=== PATIENT | male | born 1965 | race Caucasian/White ===

== ENCOUNTER 2016-07-01 20:55 | Emergency (ER) | payer MEDICARE ==
[2015-07-01 13:03] VITALS: BMI 24.6
[~2016-07-01 20:55] MED LIST: ASPIRIN 81 MG E81 MG PO; ASPIRIN325 MG PO; BAYER CHEWABLE81 MG PO; EFFIENT10 MG PO; HEMOCYTE PLUS1 CAP PO; IMDUR30 MG PO; LASIX40 MG PO; LISINOPRIL2.5 MG PO; LOPRESSOR25 MG PO; NORCO 10/325 TA1 TA1 PO; PLAVIX75 MG PO; PRAVACHOL40 MG PO; PROTONIX40 MG PO; SYNTHROID75 MCG PO; TYLENOL 8 HOUR650 MG PO; TYLENOL325 MG PO
== END 2016-07-01 21:00 | disposition left against medical advice (07) ==
LOC: D.ER 20:55
DX: Z02.9 Encounter for administrative examinations, unspecified (principal)

== ENCOUNTER 2016-10-31 00:40 | Outpatient (CLI) | payer MEDICARE ==
[~2016-10-31] VITALS: Ht 166.4 cm; Wt 66.0 kg
--- NOTE | ~2016-10-31 | HEMODYNAMI ---
PATIENT:NUHA HUMPHREYS MEDICAL RECORD: [id number] : 65 [facility] [facility] [id number] ADMISSION DATE: 10/31/16 Generatedon:11/01/201614:13 Patient name: NUHA HUMPHREYS Patient #: [id number] SSN: : 1965 Date of study: 11/01/2016 Page: Of Hemodynamic Procedure Report Patient Data Patient Demographics Procedure consent was obtained First Name: NUHA Gender: Male Last Name: PETR : 1965 [facility] Initial: SEDA Age: 51 year(s) Patient #: [id number] Race: Additional ID: [id number] Contact details [address]: [address] [place] [address] ROAD State: [place] City: [place] Zip code: [address] Past Medical History History of disease Date Diagnosis Comments CAD Allergies: No known allergies Admission Admission Data Admission Date: 10/31/2016 Admission Time: 1:01 Room #: D2123 Lab Results Lab Result Date: 11/01/2016 Lab Result Time: 0:00 Biochemistry Name Units Result Min Max BUN mg/dl 11 --(-*--)-- 7 18 Creatinine mg/dl 0.9 --(-*--)-- 0.6 1.3 CBC Name Units Result Min Max Hemoglobin g/dl 14 --(*---)-- 13.5 17.5 Procedure Procedure Types Cath Procedure Diagnostic Procedure C [facility] w/Coronaries w/Grafts PCI Procedure Coronary Stent Initial Miscellaneous Procedures Moderate Sedation up to 15 minutes Procedure Description Procedure Date Procedure Date: 11/01/2016 Procedure Start Time: 13:41 Procedure End Time: 14:13 Procedure Staff Name Function Yayo Rousseau MD Performing Physician Adolfo Plummer RT Scrub Aislinn Salazar RN Nurse Marybeth Tang RT Monitor Procedure Data Cath Procedure Fluoroscopy Diagnostic fluoroscopy Total fluoroscopy Time: 6.3 time: 6.3 min min Diagnostic fluoroscopy Total fluoroscopy dose: 822 dose: 822 mGy mGy Contrast Material Contrast Material Type Amount (ml) Isovue 300 151 Entry Location Entry Primary Successful Side Size Upsize Upsize Entry Closure Succes sful Closure Location (Fr) 1 (Fr) 2 (Fr) Remarks Device Remarks Femoral Right 5 Fr 6 Fr Exoseal artery Short Estimated blood loss: 10 ml Diagnostic catheters Device Type Used For End Catheter Placement Cordis 5Fr JL 4.0 Procedure Catheter (MP) Diagnostic Infinity 5Fr Procedure AR MOD Catheter Diagnostic Infinity 5Fr Procedure IM catheter Cordis 5Fr Pigtail Ventriculography Catheter (MP) Diagnostic Infinity 5Fr Procedure IM catheter Procedure Complications No complications Procedure Medications Medication Administration Route Dosage Oxygen NC 2 l/min Lidocaine 2% added to field 20 Heparin Flush Bag added to field 2 bags (1000units/500ml NS) 0.9% NaCl I.V. 100 ml/hr Versed I.V. 1 mg Fentanyl I.V. 50 mcg Versed I.V. 1 mg Fentanyl I.V. 50 mcg Fentanyl I.V. 50 mcg Heparin Bolus I.V. 6500 units Nitroglycerin IC/IA I.C. 50 mcg Brilinta P.O. 180 mg Hemodynamics Rest HGB: 14 (g/dl) Heart Rate: 58 (bpm) Pressure Samples Time Site Value (mmHg) Purpose Heart Use Rate(bpm) 13:51 LV 107/6,16 Snapshot 65 13:51 LV 106/7,16 Snapshot 65 Gradients Valve Time Site Site Mean SEP/DFP Peak To Heart Use 1 2 (mmHg) (sec/min) Peak Rate (mmHg) (bpm) Aortic 13:52 LV AO 60 Snapshots Pre Cath Intra NCS Post Cath Vital Signs Time Heart Resp SPO2 etCO2 [id number] NIBP Rhythm Pain Sedation Rate (ipm) (%) (mmHg) (mmHg) (mmHg) Status Level (bpm) 13:23:17 61 17 97 0 0 No Cuff NSR 0 (11) 10(A) , No pain 13:27:23 66 16 95 0 0 108/59(71) NSR 0 (11) 10(A) , No pain 13:31:33 60 16 95 0 0 94/55(72) NSR 0 (11) 10(A) , No pain 13:35:37 60 15 100 0 0 105/58(86) NSR 0 (11) 10(A) , No pain 13:39:44 61 16 100 0 0 95/57(72) NSR 0 (11) 9(A) , No pain 13:43:50 65 14 100 0 0 99/53(87) NSR 0 (11) 9(A) , No pain 13:47:52 65 13 99 0 0 113/64(84) NSR 0 (11) 9(A) , No pain 13:52:04 61 15 99 0 0 100/56(78) NSR 0 (11) 9(A) , No pain 13:56:10 63 16 99 0 0 99/57(95) NSR 0 (11) 9(A) , No pain 14:00:16 64 17 99 0 0 101/54(79) NSR 0 (11) 9(A) , No pain 14:04:21 66 16 99 0 0 94/57(69) NSR 0 (11) 9(A) , No pain 14:08:25 64 16 99 0 0 100/57(76) NSR 0 (11) 9(A) , No pain 14:12:31 65 15 98 0 0 104/55(84) NSR 0 (11) 10(A) , No pain Medications Time Medication Route Dose Verified Delivered Reason Notes Effectiveness by by 13:26:47 Oxygen NC 2 Yayo Buffie used for l/min Jj Salazar RN procedure 13:26:54 Lidocaine 2% added 20ml Yayo Yayo for local to vial Jj Rousseau MD anesthetic field 13:27:01 Heparin Flush added 2 Yayo Yayo used for Bag to bags Jj Rousseau MD procedure (1000units/500ml field NS) 13:27:10 0.9% NaCl I.V. 100 Yayo Buffie Per physician ml/hr Jj Salazar RN 13:31:11 Versed I.V. 1 mg Yayo Buffie for sedation Jj Salazar RN 13:31:16 Fentanyl I.V. 50 Yayo Buffie for sedation mcg Jj Salazar RN 13:36:52 Versed I.V. 1 mg Yayo Buffie for sedation Jj Salazar RN 13:36:56 Fentanyl I.V. 50 Yayo Buffie for sedation mcg Jj Salazar RN 13:55:37 Fentanyl I.V. 50 Yayo Buffie for sedation mcg Rousseau MD Salazar RN 13:58:37 Heparin Bolus I.V. 6500 Yayo Tao for verifi ed units Jj Salazar RN anticoagulation with dr rousseau 13:58:49 Nitroglycerin I.C. 50 Yayo Yayo for IC/IA mcg Jj Rousseau MD vasodilation 14:12:56 Brilinta P.O. 180 Yayo Tao for mg Jj Salazar RN antiplatelet therapy Procedure Log Time Note 13:02:23 Informed consent obtained and on chart 13:02:28 Diagnostic Cath Status : Elective 13:03:17 Adolfo Plummer RT(R) (CV) sent for patient. Start room use. 13:03:19 Time tracking: Regular hours 13:03:24 Plan of Care:Hemodynamics will remain stable., Cardiac rhythm will remain stable., Comfort level will be maintained., Respiratory function will remain adequate., Patient/ family verbilizes understanding of procedure., Procedure tolerated without complication., Recovers from procedure without complications.. 13:10:27 Patient received from Med II to CCL 1 Alert and oriented. Tansferred to table in Supine position. 13:11:14 H&P Date Dictated: 10/31/2016 Within 30 days and on chart.. 13:11:21 Pre-procedure instructions explained to patient. 13:12:00 Family in waiting room. 13:12:04 Patient NPO since Midnight. 13:12:20 Patient allergic to No known allergies 13:12:24 Is the patient allergic to Iodine/contrast media? No. 13:12:34 Is patient on blood thinner?Yes 13:12:38 ACC The patient was administered the following blood thiners within the last 24 hours: ACCAspirin 13:15:17 Procedure type changed to Cath procedure, Diagnostic procedure, LHC, LHC w/Coronaries w/Grafts, PCI procedure, Coronary Stent Initial, Miscellaneous Procedures, Moderate Sedation up to 15 minutes 13:22:24 Warm blankets applied, and lauren hugger turned on for patient comfort. 13:22:25 Correct patient and procedure confirmed by team. 13:22:26 ECG and BP/O2 sat monitors applied to patient. 13:22:28 Vital chart was started 13:22:30 Baseline sample Acquired. 13:22:36 Rhythm: sinus rhythm 13:22:39 Full Disclosure recording started 13:22:49 Patient diabetic? No. 13:22:53 Snore? No 13:22:55 Sleep apnea? No 13:23:25 IV patent on arrival in right antecubital with 0.9% NaCl at [facility]. 13:23:36 Lab results completed and on chart. 13:23:41 Right groin area was prepped with chlora-prep and draped in sterile fashion 13::42 Alarms reviewed by R. N. 13::43 Sharps counted by scrub and verified by R.N. 13:23:44 Physician paged 13:25:11 Lab Result : BUN 11 mg/dl 13:25:11 Lab Result : Creatinine 0.9 mg/dl 13:25:11 Lab Result : Hemoglobin 14 g/dl 13::47 Oxygen 2 l/min NC was administered by Aislinn Salazar RN; used for procedure; 13::54 Lidocaine 2% 20ml vial added to field was administered by Yayo Rousseau MD; for local anesthetic; 13:27:01 Heparin Flush Bag (1000units/500ml NS) 2 bags added to field was administered by Yayo Rousseau MD; used for procedure; 13:27:10 0.9% NaCl 100 ml/hr I.V. was administered by Aislinn Salazar RN; Per physician; 13:29:07 Physician arrived 13:29:09 --------ALL STOP TIME OUT------ 13:29:09 Final Timeout: patient, procedure, and site verified with staff and physician. All members of the team are in agreement. 13:29:12 Right groin site verified by team. 13:29:16 Physical assessment completed. ASA score P 2 - A patient with mild systemic disease as per Yayo Rousseau MD. 13:29:20 Sedation plan: IV Moderate Sedation Versed, Fentanyl 13:31:11 Versed 1 mg I.V. was administered by Aislinn Salazar RN; for sedation; 13::16 Fentanyl 50 mcg I.V. was administered by Aislinn Salazar RN; for sedation; 13:32:27 Use device set Femoral Dx 13:32:29 Acist Syringe opened to sterile field. 13:32:29 Bag Decanter opened to sterile field. 13:32:29 Medline Cath Pack opened to sterile field. 13:32:30 Terumo 5Fr [place] Sheath opened to sterile field. 13:32:30 St Isael 260cm J .035 wire opened to sterile field. 13:32:32 Acist Hand Control opened to sterile field. 13:32:33 Acist Manifold opened to sterile field. 13:32:33 Diagnostic Infinity 5Fr Multipack catheter opened to sterile field. 13:32:33 Tegaderm 4 x 4 opened to sterile field. 13:36:52 Versed 1 mg I.V. was administered by Aislinn Salazar RN; for sedation; 13:36:56 Fentanyl 50 mcg I.V. was administered by Aislinn Salazar RN; for sedation; 13:37:38 Zero performed for pressure channel P1 13:41:40 Procedure started. 13:41:44 Local anesthetic to right femoral artery with Lidocaine 2% by Yayo Rousseau MD.INITIAL ACCESS ONLY 13:42:51 Zero performed for pressure channel P1 13:43:12 A 5 Fr sheath was inserted into the Right Femoral artery 13:43:27 A Cordis 5Fr JL 4.0 Catheter (MP) was advanced over the wire and used for Procedure. 13:43:37 LCA angiography performed. 13:44:37 Catheter removed. 13:45:37 A Diagnostic Infinity 5Fr AR MOD Catheter was advanced over the wire and used for Procedure. 13:46:23 SVG to RCA occluded. 13:46:29 RCA angiography performed. 13:47:07 SVG to RPDA angiography performed. 13:47:11 SVG to OM angiography performed. 13:47:15 Catheter removed. 13:47:41 A Diagnostic Infinity 5Fr IM catheter was advanced over the wire and used for Procedure. 13:48:43 LI to LAD angiography performed. 13:49:54 Catheter removed. 13:50:51 A Cordis 5Fr Pigtail Catheter (MP) was advanced over the wire and used for Ventriculography. 13:51:41 EF : 35 % 13:52:34 Catheter removed. 13:52:55 Proceeding to intervention. 13:54:05 A Diagnostic Infinity 5Fr IM catheter was advanced over the wire and used for Procedure.IM used to wire the LI. 13:55:08 Proceeding to intervention. 13:55:21 Sheath upsized to a 6 Fr Short. 13:55:37 Fentanyl 50 mcg I.V. was administered by Aislinn Salazar RN; for sedation; 13:56:01 Terumo 6Fr [place] Sheath opened to sterile field. 13:56:06 Merit BasixCompak Inflation Kit opened to sterile field. 13:56:08 Coarsegold LocaModa Choice Floppy Straight 300cm 0.014 guid opened to sterile field. 13:56:09 High Pressure Extension Tubing (Jj) opened to sterile field. 13:56:11 Merit BasixCompak Inflation Kit opened to sterile field. 13:56:12 Medtronic Launcher 6Fr AJAY guide catheter opened to sterile field. 13:56:56 6 Fr AJAY guide catheter was inserted over the wire 13:58:37 Heparin Bolus 6500 units I.V. was administered by Aislinn Salazar RN; for anticoagulation; verified with dr rousseau 13:58:49 Nitroglycerin IC/IA 50 mcg I.C. was administered by Yayo Rousseau MD; for vasodilation; 14:01:32 choice floppy wire advanced. 14:04:24 Wire advanced across lesion. 14:05:47 Inflation Number: 1 A Brannon OTW 2.25 x 22 stent was prepped and advanced across the Dist LAD. The stent was deployed at 14 JODI for 0:19 (min:sec). 14:06:59 Wire removed. 14:07:08 Stent catheter was removed intact over wire. 14:07:09 Guide catheter removed. 14:07:23 Cordis 6Fr Exoseal opened to sterile field. 14:07:40 Sheath removed intact; hemostasis achieved with Exoseal to the Right Femoral artery. 14:07:43 Procedure ended.(Physican Out) 14:08:34 Fluoroscopy time 06.30 minutes. 14:08:40 Flurop Dose total: 822 14:08:40 Fluoroscopy dose: 822 mGy 14:08:46 Contrast amount:Isovue 300 151ml. 14:08:48 Sharps counted by scrub and verified by R.N. 14:08:56 Insertion/operative site no bleeding no hematoma. 14:09:25 Post right femoral artery:stable 14:10:51 Post Procedure Pulses reassessed and unchanged 14:10:58 Post-procedure physical assessment completed. ASA score P 2 - A patient with mild systemic disease as per Yayo Rousseau MD. 14:11:04 Post procedure rhythm: unchanged. 14:11:08 Estimated blood loss: 10 ml 14:11:10 Post procedure instruction explained to patient.Patient verbalizes understanding. 14:11:20 Procedure and supply charges have been captured, reviewed, submitted and are correct. 14:12:51 Procedure Complication : No complications 14:12:54 Vital chart was stopped 14:12:56 Brilinta 180 mg P.O. was administered by Aislinn aSlazar RN; for antiplatelet therapy; 14:12:56 See physician's report for complete and final results. 14:13:[address] [facility]. 14:13:[address] Patient transfered to [facility] with Bed. 14:13:13 Procedure ended. 14:13:13 Full Disclosure recording stopped 14:13:17 End room use (Document Last) 14:13:29 ACC-PCI Only Patient was given prescriptions, or instructed by Yayo Rousseau MD to start/continue the following medications upon discharge: Plavix Intervention Summary Intervention Notes Time ActionType Lesion and Equipment Action# Pressure Duration Attributes Used 14:05:47 Place stent Dist LAD Brannon OTW 1 14 00:19 2.25 x 22 stent Device Usage Item Name Manufacture Quantity Catalog Hospital Part Current Minima l Lot# / Number Charge Number Stock Stock Serial# Code Acist Acist 1 05518 404571 941938 151147 20 Syringe Medical Systems Inc Bag Microtek 1 2002S 105759 73623 503884 5 Decanter Medical Inc. Medline Cardinal 1 [id number] 825382 12721 016397 5 Cath Pack Movimento Group Terumo 5Fr Terumo 1 AMM680 502313 350370 655370 [address] Isael 1 880888 412713 823718 173851 30 260cm J .035 wire Acist Hand Acist 1 56057 386974 033346 790410 5 Control Medical Systems Inc Acist Acist 1 56951 513939 642012 748082 5 Manifold Medical Systems Inc Diagnostic Cardinal 1 EY2868 053541 88557 658473 30 SmartCrowds 5Fr Multipack catheter Tegaderm 4 3M 1 1626W 752123 465579 443188 5 x 4 Cordis 5Fr Cardinal 1 529694 5 JL 4.0 Health Catheter (MP) Diagnostic Cardinal 1 [id number] 161400 084882 053244 15 SmartCrowds 5Fr AR MOD Catheter Diagnostic Cardinal 1 [id number] 416996 713787 075878 5 Infinity Health 5Fr IM catheter Cordis 5Fr Cardinal 1 049228 5 Pigtail Health Catheter (MP) Terumo 6Fr Terumo 1 HSE239 668266 127363 190612 40 [place] Sheath Merit Merit 2 AN3797 424863 957353 100112 15 BasixCompak Medical Inflation Kit Coarsegold Sci Coarsegold 1 [id number] 147436 779779 687311 5 Choice Scientific Floppy Straight 300cm 0.014 guid High Merit 1 [id number] 848895 71657 294585 10 Pressure Medical Extension Tubing (Rousseau) Medtronic Medtronic 1 LA6IMA 622327 39642 538358 1 Launcher 6Fr AJAY guide catheter Brannon OTW Medtronic 1 [id number] 626439 5 [id number] 2.25 x 22 stent Cordis 6Fr Cardinal 1 EX600 426806 500002 132345 10 [facility] Movimento Group Signature Audit [place] Stage Time Signature Unsigned Intra-Procedure 11/01/2016 Marybeth Tang 2:13:44 PM RT(R) Signatures Monitor : Marybeth Tang Signature : RT Date : Time : [place] [id number] [facility] [address]
[2016-10-31 00:06] LABS: BASOPHILS 0.3 % (0-2); EOSINOPHILS 10.4 % (0-7); HEMATOCRIT 41.7 % (42.0-54.0); HEMOGLOBIN 14.7 g/dL (13.5-17.5); IMMATURE GRANULOCYTES 0.3 % (0-5); LYMPHOCYTES 58.1 % (15-50); MCH 31.3 pg (26.0-34.0); MCHC 35.3 g/dL (31.0-37.0); MCV 88.9 fL (80.0-100.0); MEAN PLATELET VOLUME 9.8 fL (7.4-10.4); NEUTROPHILS 24.9 % (40-80); PLATELET COUNT 229 10x3/uL (130-400); RBC 4.69 10x6/uL (4.20-6.10); RDW 13.6 % (11.5-14.5)
[2016-10-31 00:27] LABS: ALBUMIN 3.8 g/dL (3.4-5.0); ALKALINE PHOSPHATASE 90 U/L (46-116); ALT (SGPT) 28 U/L (10-68); CALC OSMOLALITY 274 mosm/kg (275-300); CALCIUM 8.8 mg/dL (8.5-10.1); CARBON DIOXIDE 19.5 mmol/L (21.0-32.0); CHLORIDE - SERUM 103 mmol/L (98-107); POTASSIUM - SERUM 3.2 mmol/L (3.5-5.1); PROTEIN - SERUM 7.2 g/dL (6.4-8.2); SODIUM 136 mmol/L (136-145); UREA NITROGEN 14 mg/dL (7-18); eGFR NON AFRICAN AMERICAN 84 mL/min (90-120)
[2016-10-31 00:29] LABS: GLUCOSE 126 mg/dL (74-106)
[2016-10-31 00:38] LABS: CHOL - HDL RATIO 3.9 ratio (2.3-4.9); CHOLESTEROL, TOTAL 177 mg/dL (0-200); CKMB 2.8 U/L (0.0-3.6); CREATINE KINASE 175 UL (21-232); HDL CHOLESTEROL 45 mg/dL (32-96); LDL CHOLESTEROL 88 mg/dL (0-100); TRIGLYCERIDE 220 mg/dL (30-200); TROPONIN-I < 0.017 ng/mL (0.000-0.060)
--- NOTE | 2016-10-31 01:33 | NUR ---
PT ARRIVED VIA W/C FROM ER WITH DX [place]. PT NAD. ALERTA ND ORIENTEDT O PERSON, PLACE AND TIME. IV TO LFA SL. O2 2LNC. WILL CONTINUE TO MONITOR. CALL LIGHT WITHIN REACH.
[2016-10-31 01:46] VITALS: BP 101/71; Ht 166.4 cm; Wt 66.0 kg
--- NOTE | 2016-10-31 02:01 | NUR ---
ADMISSION ASSESSMENT, HISTORY AND HOME MEDS LIST COMPLETED. SR PER CM HR 70. O2 2LNC. VSS. PT DENIES ANY DISCOMFORT AT THIS TIME. EXPLAINED TO PT NPO UNTIL SEEN BY CARDIOLOGY. WILL CONTINUE TO MONITOR. SR UP X2, CALL LIGHT WITHIN REACH.
--- NOTE | 2016-10-31 03:12 | NUR ---
PT RESTING WITH EYES CLOSED. RESP EVEN AND REGULAR. SR UP X2, CALL LIGHT WITHIN REACH.
--- NOTE | 2016-10-31 06:47 | NUR ---
VSS THOUGHTOUT NIGHT. PT DENIED ANY DISCOMFORT. NEEDS MET; WILL CONTINUE TO MONITOR.
[2016-10-31 07:22] LABS: CREATINE KINASE 141 UL (21-232); TROPONIN-I < 0.017 ng/mL (0.000-0.060)
[2016-10-31 07:46] LABS: BASOPHILS 0.4 % (0-2); EOSINOPHILS 8.2 % (0-7); HEMATOCRIT 40.2 % (42.0-54.0); IMMATURE GRANULOCYTES 0.2 % (0-5); LYMPHOCYTES 60.4 % (15-50); MCH 31.2 pg (26.0-34.0); MCHC 34.8 g/dL (31.0-37.0); MCV 89.5 fL (80.0-100.0); MEAN PLATELET VOLUME 10.2 fL (7.4-10.4); MONOCYTES 7.3 % (2-11); NEUTROPHILS 23.5 % (40-80); PLATELET COUNT 219 10x3/uL (130-400); RBC 4.49 10x6/uL (4.20-6.10); RDW 13.7 % (11.5-14.5); WBC 5.1 10x3/uL (4.8-10.8)
[2016-10-31 07:56] LABS: CALCIUM 8.6 mg/dL (8.5-10.1); CARBON DIOXIDE 21.1 mmol/L (21.0-32.0); CHLORIDE - SERUM 105 mmol/L (98-107); CREATININE - SERUM 0.9 mg/dL (0.6-1.3); SODIUM 138 mmol/L (136-145); UREA NITROGEN 11 mg/dL (7-18); eGFR NON AFRICAN AMERICAN > 90 mL/min (90-120)
[2016-10-31 08:00] VITALS: BP 114/64
[2016-10-31 08:03] LABS: CALC OSMOLALITY 273 mosm/kg (275-300); GLUCOSE 74 mg/dL (74-106); POTASSIUM - SERUM 4.1 mmol/L (3.5-5.1)
--- NOTE | 2016-10-31 08:34 | NUR ---
ASSESSMENT DONE. DENIES NEEDS.
--- NOTE | 2016-10-31 10:53 | NUR ---
RESTS WITH EYES CLOSED. RESP UL 0N . CALL LIGHT IN REACH. WILL CONT. PLAN OF CARE.
[2016-10-31 12:00] VITALS: BP 107/65
[2016-10-31 12:56] LABS: CREATINE KINASE 135 UL (21-232); TROPONIN-I < 0.017 ng/mL (0.000-0.060)
[2016-10-31 16:00] VITALS: BP 121/64
--- NOTE | 2016-10-31 17:20 | NUR ---
WITHOUT CHAMGES OR DISTRESS NOTED AT THIS TIME. DENIES NEEDS.
[2016-10-31 20:36] VITALS: BP 113/74
--- NOTE | 2016-10-31 23:41 | NUR ---
INITIAL ROUNDS COMPETED AT 1915 RHS. PT DENIED ANY DISCOMFORT. ASSESSMENT COMPLETED AT 2015 HRS. VSS. SR PER CM HR 62. O2 2LNC. IV TO LFA SL. LUNGS DIMINISHED IN BASES BILAT. SHOWER DONE AND BED LINENS CHANGED AT 2200 HRS. PT CURRENTLY WATCHING TV. WILL CONTINUE TO MONITOR. SR UP X2,C ALL LIGHT WITHIN REACH.
[2016-10-31 23:59] VITALS: BP 124/72
--- NOTE | 2016-11-01 02:09 | NUR ---
PT RESTING WITH EYES CLOSED. RESP EVEN AND REGULAR. SR UP X2, CALL LIGHT WITHIN REACH.
[2016-11-01 04:00] VITALS: BP 102/55
--- NOTE | 2016-11-01 04:35 | NUR ---
PT RESTING WITH EYES CLOSED. RESP EVEN AND REGULAR. SR UP X2, CALL LIGHT WITHIN REACH.
[2016-11-01 08:57] VITALS: BP 112/65
--- NOTE | 2016-11-01 11:06 | NUR ---
ASSESSMENT COMPLETED. UP AB AAMIR. TELEMERTY SHOWS SB 52. DENIES ANY NEEDS.
--- NOTE | 2016-11-01 11:30 | NUR ---
AMBULATING IN CASTRO. NO DISTRESS.
[2016-11-01 11:58] VITALS: BP 114/66
--- NOTE | 2016-11-01 13:00 | NUR ---
TO REGISTRATION OFFICER PER BED
[2016-11-01] MEDS ORDERED: BRILINTA90 MG PO (14:37)
[2016-11-01] MEDS ORDERED: ASPIRIN81 MG PO (14:38)
--- NOTE | 2016-11-01 14:45 | NUR ---
BACK FROM BROACH GRINDER. V/S STABLE. RIGHT GROIN SOFT WITH DRSG DRY AND INTACT. PPP. CALL LIGHT IN REACH WITH SR UP. WILLMONITOR. SR UP WITH CALL LIGHT IN REACH
--- NOTE | 2016-11-01 19:00 | NUR ---
PT DISCHARGED .IV DCD. TO HOME PERPRIVATE CAR
--- NOTE | 2016-11-03 13:54 | OP ---
PATIENT NAME: NUHA HUPMHREYS MEDICAL RECORD: [id number] :65 LOCATION:D.CAT ADMISSION DATE: SURGEON: KODAK CORLEY M.D. DATE OF OPERATION: 11/01/2016 PROCEDURES PERFORMED: 1. Selective coronary angiography. 2. Left heart catheterization with ventriculogram. 3. Bypass angiography. 4. Left internal mammary injection. 5. PTCA and stent placement to the LI to LAD. INDICATION: A 51-year-old gentleman status post bypass grafting, presents with recurrent chest discomfort. EQUIPMENT USED: Diagnostic 5-Yemeni JL4, Clark right, pigtail catheter, and mammary catheter. INTERVENTION: A 6-Yemeni LI guide, choice floppy guidewire, 2.25 x 22 mm Brannon stent. TECHNIQUE: A 5-Yemeni sheath was inserted in retrograde fashion in the right common femoral artery. Next, selective coronary angiography was performed in standard 5-Yemeni JL4 and Clark right. Left heart catheterization performed using pigtail catheter. The internal mammary was selected with internal mammary catheter. Bypass angiography was performed using an AR modified catheter. CORONARY ANATOMY: 1. Left main: Left main trunk is moderate in caliber. It gives rise to the LAD and circumflex. There is no obstruction. 2. LAD: This vessel is 100% occluded in mid segment. There is competitive flow seen to the mid segment. 3. Circumflex: This vessel is moderate in caliber. It is 100% occluded in the proximal segment. 4. Right coronary: This vessel is nondominant. It has a 70% stenosis mid segment which is unchanged from previous study. 5. Saphenous vein graft to the circumflex: This is actually a sequential graft touching down on the first, second and third marginal branches as well as the PDA. All 4 limbs are widely patent. 6. Left internal mammary artery to LAD: This graft is widely patent throughout its course. Beyond the anastomosis, there is an eccentric 80% stenosis in the mid LAD. 7. Left ventricle: Left ventricle is normal in size. There is global hypokinesis noted. Estimated ejection fraction is in the order of 35%. DESCRIPTION OF INTERVENTION: A 6-Yemeni sheath was inserted in retrograde fashion in the right common femoral artery. Next, a 1 unit of per kilogram of heparin was infused. A 6-Yemeni internal mammary guide was advanced and engaged in the internal mammary artery. Next, a choice floppy guidewire was placed in the distal LAD. A 2.25 x 22 mm Brannon stent was placed across the stenosis. The stent was deployed at 14 atmospheres. Injection shows stent to be widely patent with 0% residual stenosis. There is marked improvement in distal flow. At this point, the mammary guide was disengaged. IMPRESSION: Successful percutaneous transluminal coronary angioplasty and OPERATIVE REPORT [id number] NUHA HUMPHREYS stenting to the LAD through the LI with 0% residual stenosis. TRANSINT:[id number] Voice Confirmation ID: [id number] DOCUMENT ID: [id number] KODAK CORLEY M.D. at 1354 CC: [id number] DICTATION DATE: 11/01/16 1426 CREASING AND CUTTING PRESS FEEDER: 11/01/16 1750 DEP CLI 11/01/16 [id number] [place] [address]
== END 2016-11-01 19:00 | disposition home or self-care (01) ==
LOC: OBSVTIME → D.CATH 00:40 → D.M2 01:01 → OBSVTIME 01:01 → D.ER 01:01 → D.M2 01:01 → EDSTATUS 11-01 14:00 → D.M2 11-01 19:00 → D.CATH 11-01 19:00
PROVIDERS: Emergency Medicine; Internal Medicine Cardiovascular Disease
DX: I25.119 Atherosclerotic heart disease of native coronary artery with unspecified angina pectoris (principal); I25.719 Atherosclerosis of autologous vein coronary artery bypass graft(s) with unspecified angina pectoris; Z01.812 Encounter for preprocedural laboratory examination
CPT/HCPCS: 93459; C9604

== ENCOUNTER 2016-11-04 23:35 | Inpatient (IN) | payer MEDICARE ==
[~2016-11-04] VITALS: Ht 166.4 cm; Wt 65.5 kg
--- NOTE | ~2016-11-04 | HP ---
PATIENT: NUHA HUMPHREYS MEDICAL RECORD: [id number] ACCOUNT: [id number] LOCATION:D. D.2114 : 65 ADMISSION DATE: 11/05/16 HISTORY AND PHYSICAL EXAMINATION PROBLEM LIST: 1. Acute anterior myocardial infarction aborted with thrombolytics. 2. Coronary artery disease. 3. Status post coronary artery bypass graft surgery. 4. Status post recent percutaneous transluminal coronary angioplasty stent left anterior descending artery. HISTORY OF PRESENT ILLNESS: This is a gentleman who was seen by Dr. Gardner one week ago with angina and had significant disease of the left anterior descending artery after the left internal mammary artery graft. He underwent successful percutaneous transluminal coronary angioplasty stent of this with a drug-eluting stent. He was discharged home. He did not get his Brilinta and then was not taking an aspirin. He came back with an acute chest pain syndrome, ST elevation. He received thrombolytic therapy. His symptomatology resolved as did the ST elevation. He is now stable and pain free. PHYSICAL EXAMINATION: HEAD, EYES, EARS, NOSE, AND THROAT: Benign. NECK: Supple. No jugular venous distention. Carotid upstroke plus two bilaterally without bruits. LUNGS: Overall clear to auscultation and percussion. HEART: Regular. Normal S1, normal S2. No S3, no S4. No murmurs. BONES, JOINTS, EXTREMITIES: No clubbing, cyanosis, or edema. OVERALL IMPRESSION: Noncompliance with antiplatelet medication. At this time we will transfer to PCU. He is on a heparin drip. We will reload with Plavix and hopefully he will take the Plavix and aspirin at this point. We will also start a statin. He does not need a beta elizabeth secondary to resting bradycardia. EDUARDO GRISSOM MD CC: [id number] DICTATION DATE: 11/05/16 1229 VOLLEYBALL ASSISTANT COACH: DYLAN 11/06/16 1229 DIS IN 11/06/16 [facility] [address] [id number]
[~2016-11-04 23:35] MED LIST changes: +ASPIRIN81 MG PO; +BRILINTA90 MG PO
[2016-11-04 23:54] LABS: BASOPHILS 0.1 % (0-2); HEMATOCRIT 44.5 % (42.0-54.0); HEMOGLOBIN 15.6 g/dL (13.5-17.5); IMMATURE GRANULOCYTES 0.1 % (0-5); LYMPHOCYTES 35.4 % (15-50); MCH 31.5 pg (26.0-34.0); MCHC 35.1 g/dL (31.0-37.0); MCV 89.9 fL (80.0-100.0); MEAN PLATELET VOLUME 11.2 fL (7.4-10.4); MONOCYTES 9.3 % (2-11); NEUTROPHILS 49.1 % (40-80); PLATELET COUNT 266 10x3/uL (130-400); RBC 4.95 10x6/uL (4.20-6.10); WBC 7.4 10x3/uL (4.8-10.8)
[2016-11-05] VITALS (18 sets, daily range): BP systolic 94–147; BP diastolic 55–96; Ht 166.4 cm; Wt 65.5 kg
[2016-11-05 00:15] LABS: ALBUMIN 3.7 g/dL (3.4-5.0); ALKALINE PHOSPHATASE 86 U/L (46-116); ALT (SGPT) 24 U/L (10-68); BILIRUBIN - TOTAL 0.52 mg/dL (0.2-1.3); CALC OSMOLALITY 269 mosm/kg (275-300); CALCIUM 9.2 mg/dL (8.5-10.1); CARBON DIOXIDE 30.1 mmol/L (21.0-32.0); CHLORIDE - SERUM 101 mmol/L (98-107); CHOL - HDL RATIO 3.4 ratio (2.3-4.9); CHOLESTEROL, TOTAL 172 mg/dL (0-200); CKMB 1.2 U/L (0.0-3.6); CREATINE KINASE 198 UL (21-232); CREATININE - SERUM 0.7 mg/dL (0.6-1.3); GLUCOSE 101 mg/dL (74-106); HDL CHOLESTEROL 51 mg/dL (32-96); LDL CHOLESTEROL 76 mg/dL (0-100); LDL-HDL RATIO 1.5 ratio (1.5-3.5); PROTEIN - SERUM 7.9 g/dL (6.4-8.2); SODIUM 136 mmol/L (136-145); TRIGLYCERIDE 228 mg/dL (30-200); TROPONIN-I < 0.017 ng/mL (0.000-0.060); UREA NITROGEN 8 mg/dL (7-18); eGFR NON AFRICAN AMERICAN > 90 mL/min (90-120)
[2016-11-05 00:16] LABS: POTASSIUM - SERUM 4.6 mmol/L (3.5-5.1)
--- NOTE | 2016-11-05 00:40 | NUR ---
PATIENT ARRIVEDVIA STRETCHER AND AMBULATED TO ICU BED. PLACED HOSPITAL GOWN ON. LEFT OLD PUNCTURE SITE BEGAN TO OOZE BLOOD WHEN NIBP CUFF STARTED PUMPING UP. PRESSURE AND THEN PRESSURE DRSG APPLIED. CONNECTED TO ICU MONITORING AND ADMISSION ASSESSMENT COMPLETED. DAUGHTER IN WAITING ROOM OBTAINED. WILL MONITOR.
--- NOTE | 2016-11-05 01:13 | NUR ---
IV MORPHINE GIVEN FOR CHEST PAIN A 7/10 ON NUMBER SCALE AND DESCRIBED "PRESSURE". DAUGHTER IN AT BEDSIDE. PASSWORD SET UP. WILL MONITOR.
--- NOTE | 2016-11-05 01:45 | NUR ---
ASKING FOR NICOTINE PATCH. WILL CALL ER DOC FOR PATCH. WILL MONITOR.
--- NOTE | 2016-11-05 02:41 | NUR ---
NICOTINE PATCH OBTAINED.
--- NOTE | 2016-11-05 04:00 | NUR ---
EYES CLOSED. NO ACUTE DISTRESS NOTED. WILL MONITOR.
--- NOTE | 2016-11-05 05:10 | NUR ---
C/O PAIN TO CHEST A 9/10 ON NUMBER SCALE WHEN GOING INTO ROOM TO CHECK ON HIM. IV MORPHINE GIVEN PER REQUEST. REASSESSMENT COMPLETED. SEE ASSESSMENT FLOWSHEET. NO ACUTE DISTRESS NOTED. WILL MONITOR.
--- NOTE | 2016-11-05 05:55 | NUR ---
SARA AT BEDSIDE TO DRAW AM LABS. [place] DRINK GIVEN PER REQUEST. WILL MONITOR.
[2016-11-05 06:13] LABS: BASOPHILS 0.2 % (0-2); EOSINOPHILS 5.8 % (0-7); HEMOGLOBIN 15.2 g/dL (13.5-17.5); IMMATURE GRANULOCYTES 0.4 % (0-5); LYMPHOCYTES 45.2 % (15-50); MCH 31.3 pg (26.0-34.0); MCHC 34.5 g/dL (31.0-37.0); MCV 90.7 fL (80.0-100.0); MEAN PLATELET VOLUME 10.4 fL (7.4-10.4); MONOCYTES 8.1 % (2-11); NEUTROPHILS 40.3 % (40-80); PLATELET COUNT 223 10x3/uL (130-400); RBC 4.85 10x6/uL (4.20-6.10); RDW 13.9 % (11.5-14.5); WBC 5.6 10x3/uL (4.8-10.8)
[2016-11-05 06:25] LABS: INR 1.03 (0.85-1.17); PROTIME 13.3 SECONDS (11.6-15.0)
[2016-11-05 06:26] LABS: APTT 66.3 SECONDS (22.8-39.4)
[2016-11-05 06:53] LABS: ALBUMIN 3.4 g/dL (3.4-5.0); ALKALINE PHOSPHATASE 81 U/L (46-116); ALT (SGPT) 22 U/L (10-68); BILIRUBIN - TOTAL 0.28 mg/dL (0.2-1.3); CALC OSMOLALITY 272 mosm/kg (275-300); CALCIUM 8.8 mg/dL (8.5-10.1); CHLORIDE - SERUM 103 mmol/L (98-107); CREATINE KINASE 147 UL (21-232); GLUCOSE 87 mg/dL (74-106); SODIUM 138 mmol/L (136-145); UREA NITROGEN 7 mg/dL (7-18)
[2016-11-05 06:59] LABS: CREATININE - SERUM 0.9 mg/dL (0.6-1.3); POTASSIUM - SERUM 3.9 mmol/L (3.5-5.1); TROPONIN-I 5.114 ng/mL (0.000-0.060); eGFR NON AFRICAN AMERICAN > 90 mL/min (90-120)
--- NOTE | 2016-11-05 06:59 | NUR ---
CRITICAL TROPONIN TAKEN. TROPONIN=5.11. EXPECTED TO BE ELEVATED. REPORT GIVEN TO DELMY MITCHELL.
--- NOTE | 2016-11-05 08:30 | NUR ---
PT UP IN CHAIR BESIDE BED AT THIS TIME. DENIES ANY NEEDS.NO ACUTE DISTRESS NOTED. ASSISTED PT TO TOILET VIA STAND BY ASSIST. CONTINENT VOID NOTED APPROX 800ML. SPECIMEN COLLECTED AND WILL BE SENT TO LAB PER ORDERS. NO ACUTE DISTRESS NOTED. WILL CONTINUE PLAN OF CARE.
[2016-11-05 08:50] LABS: UDS - AMPHET NEGATIVE QUAL (NEGATIVE); UDS - BARB NEGATIVE QUAL (NEGATIVE); UDS - BENZO NEGATIVE QUAL (NEGATIVE); UDS - COCAINE NEGATIVE QUAL (NEGATIVE); UDS - METH NEGATIVE QUAL (NEGATIVE); UDS - OPIATE POSITIVE QUAL (NEGATIVE); UDS - PCP NEGATIVE QUAL (NEGATIVE); UDS - THC NEGATIVE QUAL (NEGATIVE)
--- NOTE | 2016-11-05 08:55 | NUR ---
DR GRISSOM HERE AT THIS TIME. ORDERS PLACED.
--- NOTE | 2016-11-05 09:23 | NUR ---
NOTED ORDER PER DR GRISSOM TO DC HEPARIN DRIP 2 HOURS AFTER ADMIN OF PLAVIX, AND AFTER DC HEPARIN DRIP PT IS OKAY TO TRANSFER TO FLOOR. PT DENIES ANY QUESTIONS OR CONCERNS. NO ACUTE DISTRESS NOTED. WILL CONTINUE PLAN OF CARE.
--- NOTE | 2016-11-05 10:35 | NUR ---
NOTED PT TO TRANSFER TO ROOM 2113, REPORT CALLED IN AT THIS TIME TO FRANKIE. WILL TRANSFER PT AFTER HEPARIN DRIP IS DC PER ORDERS. NO ACUTE DISTRESS NOTED. WILL CONTINUE PLAN OF CARE.
--- NOTE | 2016-11-05 10:43 | NUR ---
RESTING IN BED AT THIS TIME, RESPIRATIONS AT STEADY AND UNLABORED RATE. AWAKENS EASILY WHEN SPOKEN TO. NO ACUTE DISTRESS NOTED. WILL CONTINUE PLAN OF CARE.
--- NOTE | 2016-11-05 11:17 | NUR ---
HEPARIN DRIP DC AT THIS TIME PER ORDERS. WILL TRANSFER PT SOON.
--- NOTE | 2016-11-05 11:37 | NUR ---
PT TRANSFERRED AT THIS TIME TO ROOM 2114 AT THIS TIME. PT TRANSFERRED VIA WHEELCHAIR WITH ALL PERSONAL ITEMS WITH ASSIST FROM NURSING STAFF. PT STATED HE WISHED TO NOTIFY HIS FAMILY OF TRANSFER. NO ACUTE DISTRESS NOTED. NO FURTHER ACTIONS.
--- NOTE | 2016-11-05 11:43 | NUR ---
TRANSFER FROM CVICU BY W/Brandi HIGUERA TO ROOM. CALL LIGHT IN REACH. WILL CONT. PLAN OF CARE.
--- NOTE | 2016-11-05 13:57 | NUR ---
TELEMETRY CAF. IV PATENT. RESP UL ON 40L VAPOTHERM. DAUGHTER AT BS. WILL CONT. PLAN OF CARE.
--- NOTE | 2016-11-05 19:00 | NUR ---
RECEIVED REPORT AND ASSUMED PT CARE FROM DAY SHIFT NURSE @ THIS TIME.
[2016-11-06 04:00] VITALS: BP 102/58
--- NOTE | 2016-11-06 07:30 | NUR ---
RECEIVED PT IN BED EYES CLOSED RESP UNLABORED NAD NOTED
[2016-11-06 08:00] VITALS: BP 92/62
--- NOTE | 2016-11-06 09:00 | NUR ---
PT REFUSED 0900 MEDS STATED HE WOULD TAKE HIS OWN WHEN HE GOT HOME. STATED BRILINTA BEING FILLED AT THIS TIME
--- NOTE | 2016-11-06 10:32 | NUR ---
REVIEWED DISCHARGE INSTRUCTIONS WITH PT STATES UNDERSTANDING COPY GIVEN TO PT SALINE LOCK DCD TO RFA AND RAC WITH 20 GA IV CATHETERS INTACT SITE FREE OF REDNESS OR EDEMA EXPLAINED AGAIN IMPORTANCE OF TAKING MEDICATIONS PT STATES UNDERSTANDING PT DISCHARGED HOME LEFT UNIT VIA W/C IN STABLE CONDITION WITH ALL PERSONAL BELONGING
== END 2016-11-06 10:32 | disposition home or self-care (01) | DRG 282 ==
LOC: D.ER 23:35 → D.M2 11-05 00:22 → D.CVICU 11-05 00:22 → D.M2 11-05 11:36
PROVIDERS: Family Medicine; ADMIT Internal Medicine Interventional Cardiology
DX: I21.3 ST elevation (STEMI) myocardial infarction of unspecified site (principal); I25.10 Atherosclerotic heart disease of native coronary artery without angina pectoris; Z95.5 Presence of coronary angioplasty implant and graft; Z95.1 Presence of aortocoronary bypass graft; Z91.14 Patient's other noncompliance with medication regimen

== ENCOUNTER 2016-12-24 23:15 | Observation (INO) | payer MEDICARE ==
[~2016-12-24] VITALS: Ht 166.4 cm; Wt 70.0 kg
[2016-12-24 23:40] LABS: BASOPHILS 0.4 % (0-2); EOSINOPHILS 6.2 % (0-7); HEMATOCRIT 42.3 % (42.0-54.0); HEMOGLOBIN 14.6 g/dL (13.5-17.5); MCH 31.6 pg (26.0-34.0); MCHC 34.5 g/dL (31.0-37.0); MCV 91.6 fL (80.0-100.0); MEAN PLATELET VOLUME 9.6 fL (7.4-10.4); MONOCYTES 6.5 % (2-11); NEUTROPHILS 36.9 % (40-80); PLATELET COUNT 241 10x3/uL (130-400); RBC 4.62 10x6/uL (4.20-6.10); RDW 14.5 % (11.5-14.5); WBC 5.5 10x3/uL (4.8-10.8)
[2016-12-24 23:57] LABS: ALBUMIN 3.8 g/dL (3.4-5.0); ALKALINE PHOSPHATASE 77 U/L (46-116); ALT (SGPT) 24 U/L (10-68); BILIRUBIN - TOTAL 0.18 mg/dL (0.2-1.3); CALC OSMOLALITY 280 mosm/kg (275-300); CALCIUM 8.3 mg/dL (8.5-10.1); CARBON DIOXIDE 24.1 mmol/L (21.0-32.0); CHLORIDE - SERUM 107 mmol/L (98-107); CREATININE - SERUM 0.9 mg/dL (0.6-1.3); GLUCOSE 91 mg/dL (74-106); POTASSIUM - SERUM 3.6 mmol/L (3.5-5.1); PROTEIN - SERUM 7.3 g/dL (6.4-8.2); SODIUM 142 mmol/L (136-145); UREA NITROGEN 6 mg/dL (7-18); eGFR NON AFRICAN AMERICAN > 90 mL/min (90-120)
[2016-12-25 00:08] LABS: CKMB 1.1 U/L (0.0-3.6); CREATINE KINASE 154 UL (21-232)
[2016-12-25 00:09] LABS: TROPONIN-I < 0.017 ng/mL (0.000-0.060)
[2016-12-25 00:48] LABS: APPEARANCE CLEAR (CLEAR); COLOR YELLOW (YELLOW); GLUCOSE NEGATIVE (NEGATIVE); KETONE NEGATIVE (NEGATIVE); LEUKOCYTE ESTERASE NEGATIVE (NEGATIVE); NITRITE NEGATIVE (NEGATIVE); PROTEIN NEGATIVE (NEGATIVE); SPECIFIC GRAVITY 1.015 (1.005-1.020)
[2016-12-25 00:49] LABS: BILIRUBIN NEGATIVE (NEGATIVE); UROBILINOGEN NORMAL (NORMAL)
[2016-12-25 01:00] LABS: UDS - AMPHET NEGATIVE QUAL (NEGATIVE); UDS - BARB NEGATIVE QUAL (NEGATIVE); UDS - BENZO NEGATIVE QUAL (NEGATIVE); UDS - COCAINE NEGATIVE QUAL (NEGATIVE); UDS - METH NEGATIVE QUAL (NEGATIVE); UDS - OPIATE POSITIVE QUAL (NEGATIVE); UDS - PCP NEGATIVE QUAL (NEGATIVE); UDS - THC NEGATIVE QUAL (NEGATIVE)
--- NOTE | 2016-12-25 02:30 | NUR ---
PT ARRIVES VIA WC TO FLOOR FROM ER. TELE PLACED, NSR ON MONITOR, HR 70'S. VSS, AFEBRILE. MEDICATIONS RECONCILED. ADMISSION ASSESSMENT AND HISTORY COMPLETED. DENIES ANY C/O PAIN ON ARRIVAL. UNIT ROUTINES AND PROTOCOLS DISCUSSED. VERBALIZES UNDERSTANDING. CALL LIGHT PLACED WITHIN REACH. WILL CONT TO MONITOR.
[2016-12-25 03:13] VITALS: BP 115/81; Ht 166.4 cm; Wt 70.0 kg
[2016-12-25 04:00] VITALS: BP 115/81
[2016-12-25 05:39] LABS: CREATINE KINASE 135 UL (21-232)
[2016-12-25 05:42] LABS: TROPONIN-I < 0.017 ng/mL (0.000-0.060)
--- NOTE | 2016-12-25 07:20 | NUR ---
RECEIVED REPORT. ASSUMED CARE OF PATIENT. RESTING IN BED WITH EYES CLOSED. EASILY AROUSED. NO DISTRESS. CALL LIGHT WITHIN REACH.
[2016-12-25 08:00] VITALS: BP 103/66
[2016-12-25 11:38] LABS: CKMB 0.9 U/L (0.0-3.6); CREATINE KINASE 143 UL (21-232); TROPONIN-I < 0.017 ng/mL (0.000-0.060)
[2016-12-25 12:00] VITALS: BP 130/70
--- NOTE | 2016-12-25 13:30 | NUR ---
ORDER RECIEVED FOR AHA DIET AND START PROTONIX DAILY.
[2016-12-25 16:00] VITALS: BP 136/86
--- NOTE | 2016-12-25 16:15 | NUR ---
RESTING IN BED WITH EYES OPEN, NO DISTRESS. DENIES NEEDS.
--- NOTE | 2016-12-25 16:40 | NUR ---
MEDICATED FOR SHOULDER PAIN AT THIS TIME. NO DISTRESS.
[2016-12-25 17:40] LABS: CKMB 1.1 U/L (0.0-3.6); CREATINE KINASE 141 UL (21-232); TROPONIN-I < 0.017 ng/mL (0.000-0.060)
--- NOTE | 2016-12-25 18:38 | NUR ---
JESSICA FLORES PROVIDED UPON REQUEST. IV FLUIDS INFUSING ORDERED. PATIENT STATES HE IS WAITING FOR FAMILY TO COME UP HERE AND GET HIS KEYS AND WALLET OUT OF HIS TRUCK THAT IS PARKED IN ER PARKING LOT. PATIENT STATES HE DID NOT THINK HE WOULD BE HERE THIS LONG. NO DISTRESS. CALL LIGHT WITHIN REACH.
[2016-12-25 19:00] VITALS: BP 169/96
--- NOTE | 2016-12-25 19:30 | NUR ---
RESUMED CARE OF PT, LYING IN BED RESPIRATIONS EVEN AND UNLABORED ON ROOM AIR. RIGHT FOREARM INFUSING D5N S@ 100. 57 SB ON TELEMETRY. NO NEEDS VOICED AT THIS TIME, CALL LIGHT IN REACH. WILL CONTINUE TO MONITOR. SEE NURSE ASSESSMENT.
--- NOTE | 2016-12-25 22:12 | NUR ---
NIGHT MEDS PASSED, REQUESTS SLEEPING PILL. METAL LEAF LAYER IS AWARE AND WILL CHECK WITH ER PHYSICIAN. WILL CONTINUE TO MONITOR.
[2016-12-26] VITALS: BP 138/85
--- NOTE | 2016-12-26 02:08 | NUR ---
MORPHINE 4MG IVP FOR PAIN TO LEFT ARM AND LEG. WILL CONTINUE TO MONITOR.
[2016-12-26 04:00] VITALS: BP 123/78
--- NOTE | 2016-12-26 06:19 | NUR ---
NO CHANGES FROM PREVIOUS ASSESSMENT, MORNING MEDS GIVEN. CALL LIGHT IN REACH.
--- NOTE | 2016-12-26 07:00 | NUR ---
RECEIVED REPORT. ASSUMED CARE OF PATIENT. CALL LIGHT WITHIN REACH. PATIENT LYING IN BED WITH EYES OPEN. PATIENT DENIES NEEDS AT THIS TIME. PATIENT UNHOOKED FROM IV AT THIS TIME TO AMBULATE IN HALLWAY. NO DISTRESS. PATIENT REMAINS ON TELEMETRY.
[2016-12-26 07:12] LABS: BASOPHILS 0.4 % (0-2); EOSINOPHILS 6.6 % (0-7); HEMATOCRIT 44.8 % (42.0-54.0); HEMOGLOBIN 15.1 g/dL (13.5-17.5); IMMATURE GRANULOCYTES 0.2 % (0-5); MCH 31.3 pg (26.0-34.0); MCHC 33.7 g/dL (31.0-37.0); MCV 92.9 fL (80.0-100.0); MEAN PLATELET VOLUME 10.3 fL (7.4-10.4); MONOCYTES 7.1 % (2-11); NEUTROPHILS 34.7 % (40-80); PLATELET COUNT 252 10x3/uL (130-400); RBC 4.82 10x6/uL (4.20-6.10); RDW 14.6 % (11.5-14.5); WBC 5.5 10x3/uL (4.8-10.8)
[2016-12-26 07:33] LABS: CALC OSMOLALITY 273 mosm/kg (275-300); CARBON DIOXIDE 29.1 mmol/L (21.0-32.0); CHLORIDE - SERUM 106 mmol/L (98-107); GLUCOSE 84 mg/dL (74-106); POTASSIUM - SERUM 4.1 mmol/L (3.5-5.1); SODIUM 138 mmol/L (136-145); eGFR NON AFRICAN AMERICAN 84 mL/min (90-120)
[2016-12-26 07:42] LABS: UREA NITROGEN 9 mg/dL (7-18)
[2016-12-26 08:00] VITALS: BP 140/93
[2016-12-26] MEDS ORDERED: PROTONIX40 MG PO (15:04)
--- NOTE | 2016-12-26 17:18 | NUR ---
20 GAUGE IV REMOVED FROM RIGHT FOREARM. PATIENT IS BEING DISCHARGED TO HOME. CATHETER TIP INTACT. NO BLEEDING FROM SITE. 2X2 GAUZE APPLIED AND SECURED WITH TAPE. TELEMETRY REMOVED. NO DISTRESS.
--- NOTE | 2016-12-26 18:15 | NUR ---
DISCHARGE INSTRUCTIONS PROVIDED AT 1809 AFTER SPEAKING TO . PATIENT WILL FOLLOW UP WITH CARDIAC NEXT WEEK FOR MEDICATION REVIEW. PATIENT VERBALIZES HE WILL FOLLOW UP WITH CARDIOLOGY. 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 1814 PATIENT AMBULATED OFF UNIT. PATIENT DISCHARGED TO HOME. PATIENT HAS OWN VEHICLE IN PARKED IN PARKING LOT HE DROVE HIMSELF TO THE HOSPTIAL. NO DRIVING RESTRICTIONS. PATIENT AMBULATED OFF UNIT WITH ALL PERSONAL BELONGINGS IN NO DISTRESS.
== END 2016-12-26 18:15 | disposition home or self-care (01) ==
LOC: D.ER 23:15 → D.M2 12-25 01:49 → OBSVTIME 12-25 01:49 → D.M2 12-26 18:15
PROVIDERS: Emergency Medicine; ADMIT Emergency Medicine
DX: R07.89 Other chest pain (principal); I25.10 Atherosclerotic heart disease of native coronary artery without angina pectoris; Z95.5 Presence of coronary angioplasty implant and graft; Z95.1 Presence of aortocoronary bypass graft; I10 Essential (primary) hypertension; Z72.0 Tobacco use

== ENCOUNTER 2017-02-21 16:52 | Emergency (ER) | payer MEDICARE ==
[2016-12-25 03:13] VITALS: BMI 23.8
[2017-02-21 17:18] LABS: BASOPHILS 0.2 % (0-2); HEMATOCRIT 46.7 % (42.0-54.0); HEMOGLOBIN 16.4 g/dL (13.5-17.5); IMMATURE GRANULOCYTES 0.2 % (0-5); LYMPHOCYTES 44.2 % (15-50); MCH 32.3 pg (26.0-34.0); MCHC 35.1 g/dL (31.0-37.0); MCV 91.9 fL (80.0-100.0); MEAN PLATELET VOLUME 9.8 fL (7.4-10.4); MONOCYTES 5.5 % (2-11); NEUTROPHILS 44.9 % (40-80); PLATELET COUNT 269 10x3/uL (130-400); RBC 5.08 10x6/uL (4.20-6.10); RDW 13.2 % (11.5-14.5); WBC 5.6 10x3/uL (4.8-10.8)
[2017-02-21 17:35] LABS: ALKALINE PHOSPHATASE 93 U/L (46-116); ALT (SGPT) 28 U/L (10-68); BILIRUBIN - TOTAL 0.19 mg/dL (0.2-1.3); CALC OSMOLALITY 273 mosm/kg (275-300); CALCIUM 9.2 mg/dL (8.5-10.1); CARBON DIOXIDE 21.7 mmol/L (21.0-32.0); CHLORIDE - SERUM 103 mmol/L (98-107); CREATININE - SERUM 0.8 mg/dL (0.6-1.3); GLUCOSE 82 mg/dL (74-106); PROTEIN - SERUM 8.2 g/dL (6.4-8.2); SODIUM 138 mmol/L (136-145); UREA NITROGEN 10 mg/dL (7-18); eGFR NON AFRICAN AMERICAN > 90 mL/min (90-120)
[2017-02-21 17:45] LABS: CHOL - HDL RATIO 3.7 ratio (2.3-4.9); CHOLESTEROL, TOTAL 170 mg/dL (0-200); CKMB 1.8 U/L (0.0-3.6); CREATINE KINASE 172 UL (21-232); HDL CHOLESTEROL 46 mg/dL (32-96); LDL CHOLESTEROL 91 mg/dL (0-100); TRIGLYCERIDE 168 mg/dL (30-200)
[2017-02-21 18:00] LABS: TROPONIN-I < 0.017 ng/mL (0.000-0.060)
[2017-02-21 19:43] LABS: APPEARANCE CLEAR (CLEAR); BILIRUBIN NEGATIVE (NEGATIVE); COLOR YELLOW (YELLOW); GLUCOSE NEGATIVE (NEGATIVE); KETONE NEGATIVE (NEGATIVE); NITRITE NEGATIVE (NEGATIVE); PROTEIN NEGATIVE (NEGATIVE); UROBILINOGEN NORMAL (NORMAL)
[2017-02-21 19:53] LABS: UDS - AMPHET NEGATIVE QUAL (NEGATIVE); UDS - BARB NEGATIVE QUAL (NEGATIVE); UDS - BENZO NEGATIVE QUAL (NEGATIVE); UDS - COCAINE NEGATIVE QUAL (NEGATIVE); UDS - OPIATE NEGATIVE QUAL (NEGATIVE); UDS - PCP NEGATIVE QUAL (NEGATIVE); UDS - THC NEGATIVE QUAL (NEGATIVE)
== END 2017-02-21 21:38 | disposition home or self-care (01) ==
LOC: D.ER 16:52
PROVIDERS: Emergency Medicine; Nurse Practitioner Family
DX: I20.8 Other forms of angina pectoris (principal); I10 Essential (primary) hypertension

== ENCOUNTER 2018-02-19 16:59 | Observation (INO) | payer MEDICARE ==
[~2018-02-19] VITALS: Ht 166.4 cm; Wt 63.6 kg
--- NOTE | ~2018-02-19 | HEMODYNAMI ---
PATIENT:NUHA HUMPHREYS MEDICAL RECORD: [id number] : 65 LOCATION:[address] ADMISSION DATE: 02/19/18 Generatedon:02/20/201810:20 Patient name: NUHA HUMPHREYS Patient #: [id number] SSN: : 1965 Date of study: 02/20/2018 Page: Of Hemodynamic Procedure Report Patient Data Patient Demographics Procedure consent was obtained First Name: NUHA Gender: Male Last Name: PETR : 1965 [facility] Initial: SEDA Age: 52 year(s) Patient #: [id number] Race: Additional ID: [id number] Contact details [address]: [address] [place] [address] ROAD State: [place] City: [place] Zip code: [address] Past Medical History History of disease Date Diagnosis Comments CAD Allergies: No known allergies Admission Admission Data Admission Date: 02/19/2018 Admission Time: 19:20 Room #: [facility] Procedure Procedure Types Cath Procedure Diagnostic Procedure LHC LHC w/Coronaries w/Grafts Sedation Charges Moderate Sedation up to 15 minutes Procedure Description Procedure Date Procedure Date: 02/20/2018 Procedure Start Time: 9:59 Procedure End Time: 10:15 Procedure Staff Name Function Yayo Gardner MD Performing Physician Nithya Monte RT Monitor Marybeth Tang RT Scrub Lalo Harris RN Nurse Ivan Lima RT Enrollment Management Manager Procedure Data Cath Procedure Fluoroscopy Diagnostic fluoroscopy Total fluoroscopy Time: 3 time: 3 min min Diagnostic fluoroscopy Total fluoroscopy dose: 351 dose: 351 mGy mGy Contrast Material Contrast Material Type Amount (ml) Isovue 300 68 Entry Location Entry Primary Successful Side Size Upsize Upsize Entry Closure Succes sful Closure Location (Fr) 1 (Fr) 2 (Fr) Remarks Device Remarks Femoral Right 5 Fr Exoseal artery Estimated blood loss: 5 ml Diagnostic catheters Device Type Used For End Catheter Placement MULTIPACK JL 4.0 5Fr Left Coronary catheter Angiography MULTIPACK 3DRC 5Fr Right Coronary catheter Angiography DIAGNOSTIC AR MOD 5Fr Multi-vessel Catheter ([id number]) Angiography DIAGNOSTIC IM 5Fr Multi-vessel catheter ([id number]) Angiography MULTIPACK Pigtail 5 Fr LV Angiography catheter Procedure Complications No complications Procedure Medications Medication Administration Route Dosage 0.9% NaCl I.V. 100 ml/hr Oxygen etCO2 Nasal cannula 2 l/min Heparin Flush Bag added to field 2 bags (1000units/500ml NS) Lidocaine 2% added to field 20 Versed I.V. 2 mg Fentanyl I.V. 100 mcg Versed I.V. 1 mg Hemodynamics Rest Heart Rate: 60 (bpm) Pressure Samples Time Site Value (mmHg) Purpose Heart Use Rate(bpm) 10:11 LV 86/3,11 Snapshot 66 10:12 AO 99/51(70) Pullback 57 10:12 LV 93/1,12 Pullback 57 Gradients Valve Time Site 1 Site 2 Mean SEP/DFP Peak To Heart Use (mmHg) (sec/min) Peak Rate (mmHg) (bpm) Aortic 10:12 LV AO 0 5 0 57 93/1,12 99/51(70) Calculations Valve P-P Mean Valve Index Valve Source Name Gradient Area Flow (cm2) Aortic 0 0 0 0 Snapshots Pre Cath Intra NCS Post Cath Vital Signs Time Heart Resp SPO2 etCO2 NIBP (mmHg) Rhythm Pain Sedation Rate (ipm) (%) (mmHg) Status Level (bpm) 9:27:47 59 14 100 0 143/77(101) NSR 0 (11) 10(A) , No pain 9:32:01 58 13 100 36.3 134/77(101) NSR 0 (11) 10(A) , No pain 9:36:15 58 17 100 34.7 129/75(96) NSR 0 (11) 10(A) , No pain 9:40:27 60 14 100 38.5 120/77(89) NSR 0 (11) 10(A) , No pain 9:44:37 58 13 100 32.5 127/83(99) NSR 0 (11) 10(A) , No pain 9:48:47 57 12 100 34 123/87(100) NSR 0 (11) 10(A) , No pain 9:52:59 64 19 100 44.6 116/73(90) NSR 0 (11) 10(A) , No pain 9:57:09 59 17 99 44.5 109/61(78) NSR 0 (11) 10(A) , No pain 10:01:21 58 15 99 44.6 108/63(76) NSR 0 (11) 9(A) , No pain 10:05:31 63 15 99 44.6 101/63(75) NSR 0 (11) 9(A) , No pain 10:09:39 61 16 100 45.3 101/69(80) NSR 0 (11) 9(A) , No pain 10:13:48 56 17 100 45.3 93/62(69) NSR 0 (11) 10(A) , No pain Medications Time Medication Route Dose Verified Delivered Reason Notes Eff ectiveness by by 9:32:53 0.9% NaCl I.V. 100 Lalo Lalo Per ml/hr Ledaigan Lorigan physician RN RN 9:33:06 Oxygen etCO2 2 Lalo Lalo Per Nasal l/min Lorkevin Tompkinsigan physician cannula RN RN 9:33:19 Heparin Flush added 2 Lalo Lalo used for Bag to bags Lorigan Lorigan procedure (1000units/500ml field RN RN NS) 9:33:32 Lidocaine 2% added 20ml Lalo Lalo for local to vial Lorigan Lorigan anesthetic field RN RN 9:51:41 Versed I.V. 2 mg Lalo Lalo for Lorigan Lorigan sedation RN RN 9:51:52 Fentanyl I.V. 100 Lalo Lalo for mcg Lorigan Lorigan sedation RN RN 10:00:06 Versed I.V. 1 mg Lalo Lalo for Lorigan Lorigan sedation RN fruit i farmworker Log Time Note 9:14:38 Ivan Lima RT(R) sent for patient. Start room use. 9:14:39 Time tracking: Regular hours (M-F 7:00 - 5:00) 9:14:44 Plan of Care:Hemodynamics will remain stable., Cardiac rhythm will remain stable., Comfort level will be maintained., Respiratory function will remain adequate., Patient/ family verbilizes understanding of procedure., Procedure tolerated without complication., Recovers from procedure without complications.. 9:22:44 Patient received from Med II to [facility] 1 Alert and oriented. Tansferred to table in Supine position. 9:22:45 Warm blankets applied, and lauren hugger turned on for patient comfort. 9:22:45 Correct patient and procedure confirmed by team. 9:22:47 Signed procedure consent form obtained from patient. 9:22:48 ECG and BP/O2 sat monitors applied to patient. 9:26:37 Vital chart was started 9:26:38 Full Disclosure recording started 9:28:48 Baseline sample Acquired. 9:28:53 Rhythm: sinus rhythm 9:29:09 H&P Date Dictated: 02/20/2018 New H&P dictated by physician.. 9:32:53 0.9% NaCl 100 ml/hr I.V. was administered by Lalo Harris RN; Per physician; 9:33:06 Oxygen 2 l/min etCO2 Nasal cannula was administered by Lalo Harris RN; Per physician; 9:33:19 Heparin Flush Bag (1000units/500ml NS) 2 bags added to field was administered by Lalo Harris RN; used for procedure; 9:33:32 Lidocaine 2% 20ml vial added to field was administered by Lalo Harris RN; for local anesthetic; 9:39:14 Pre-procedure instructions explained to patient. 9:39:14 Pre-op teaching completed and patient verbalized understanding. 9:39:16 Family in waiting room. 9:39:17 Patient NPO since Midnight. 9:39:19 Is the patient allergic to Iodine/contrast media? No. 9:39:20 Was the patient premedicated? No 9:40:11 Zero performed for pressure channel P1 9:40:27 Is patient on blood thinner?Yes 9:40:30 ACC The patient was administered the following blood thiners within the last 24 hours: ACCPlavix 9:40:33 Patient diabetic? No. 9:40:37 Previous problem with sedation/anesthesia? No ? 9:40:44 Snore? No 9:40:46 Sleep apnea? No 9:40:47 Deviated septum? No 9:40:48 Opens mouth fully? Yes 9:40:49 Sticks out tongue? Yes 9:40:51 Airway obstruction? No ? 9:40:55 Dentures? No ? 9:41:00 Pre procedure: right dorsailis pedis pulse 2+ Normal; easily identifiable; not easily obliterated 9:41:02 Pre procedure: left dorsailis pedis pulse 2+ Normal; easily identifiable; not easily obliterated 9:41:04 Patient pain scale 0/10 ?. 9:42:19 IV patent on arrival in left forearm with 0.9% NaCl at O. 9:42:21 Lab results completed and on chart. 9:42:26 Right groin area was prepped with chlora-prep and draped in sterile fashion 9:42:27 Alarms reviewed by R. N. 9:42:27 Sharps counted by scrub and verified by R.N. 9:45:52 Physician arrived 9:45:53 --------ALL STOP TIME OUT------ 9:45:54 Final Timeout: patient, procedure, and site verified with staff and physician. All members of the team are in agreement. 9:45:59 Right groin site verified by team. 9:46:02 Physical assessment completed. ASA score P 2 - A patient with mild systemic disease as per Yayo Gardner MD. 9:46:06 Sedation plan: IV Moderate Sedation Medication:Versed, Fentanyl 9:46:10 Use device set Femoral Dx 9:46:12 ACIST Syringe (17529) opened to sterile field. 9:46:12 Bag Decanter (2002S) opened to sterile field. 9:46:12 Medline Cath Pack ([id number]) opened to sterile field. 9:46:13 DIAGNOSTIC WIRE .035 260cm J wire (610095) opened to sterile field. 9:46:14 ACIST Hand Control (30936) opened to sterile field. 9:46:14 ACIST Manifold (05164) opened to sterile field. 9:46:15 DIAGNOSTIC Multipack 5Fr catheter set ([id number]) opened to sterile field. 9:46:16 Tegaderm 4 x 4 (1626W) opened to sterile field. 9:46:17 SHEATH Prelude 5Fr 0.035 ([id number]) opened to sterile field. 9:51:41 Versed 2 mg I.V. was administered by Lalo Harris RN; for sedation; 9:51:52 Fentanyl 100 mcg I.V. was administered by Lalo Harris RN; for sedation; 9:58:30 Procedure started. 9:59:18 Local anesthetic to right femoral artery with Lidocaine 2% by Yayo Gardner MD.INITIAL ACCESS ONLY 9:59:28 A 5 Fr sheath was inserted into the Right Femoral artery 10:00:06 Versed 1 mg I.V. was administered by Lalo Harris RN; for sedation; 10:00:12 A MULTIPACK JL 4.0 5Fr catheter was advanced over the wire and used for Left Coronary Angiography. 10:02:33 LCA angiography performed. 10:02:39 Injector settings: Ml/sec: 3, Volume: 6, 10:03:26 Catheter removed. 10:03:32 A MULTIPACK 3DRC 5Fr catheter was advanced over the wire and used for Right Coronary Angiography. 10:04:31 RCA angiography performed. 10:04:34 Injector settings: Ml/sec: 3, Volume: 6, 10:05:06 Catheter removed. 10:05:56 A DIAGNOSTIC AR MOD 5Fr Catheter ([id number]) was advanced over the wire and used for Multi-vessel Angiography. 10:06:09 SVG to Circ angiography performed. 10:06:41 Catheter removed. 10:07:13 A DIAGNOSTIC IM 5Fr catheter ([id number]) was advanced over the wire and used for Multi-vessel Angiography. 10:08:30 LI angiography performed. 10:09:44 Catheter removed. 10:10:19 A MULTIPACK Pigtail 5 Fr catheter was advanced over the wire and used for LV Angiography. 10:11:41 LV hemodynamics recorded. 10:11:42 LV gram done using PALACIOS 10:11:44 Injector settings: Ml/sec: 5, Volume: 15, 10:11:50 EF : 40 % 10:12:21 Catheter removed. 10:12:51 EXOSEAL 5Fr (EX500) opened to sterile field. 10:13:04 Sheath removed intact; hemostasis achieved with Exoseal to the Right Femoral artery. 10:13:07 Procedure ended.(Physican Out) 10:13:27 Fluoroscopy time 03.00 minutes. 10:13:33 Fluoroscopy dose: 351 mGy 10:13:33 Flurop Dose total: 351 10:14:11 Contrast amount:Isovue 300 68ml. 10:14:16 Sharps counted by scrub and verified by R.N. 10:14:17 Insertion/operative site no bleeding no hematoma. 10:14:20 Post-op/insertion site Right Femoral artery dressed using a 4 x 4 and Tegaderm. 10:14:23 Post right femoral artery:stable 10:14:25 Post Procedure Pulses reassessed and unchanged 10:14:28 Post procedure rhythm: unchanged. 10:14:31 Estimated blood loss: 5 ml 10:14:33 Patient needs reinforcement of post procedure teaching. 10:14:34 Post procedure instruction explained to patient.Patient verbalizes understanding. 10:14:51 Procedure type changed to Cath procedure, Diagnostic procedure, LHC, LHC w/Coronaries w/Grafts, Sedation Charges, Moderate Sedation up to 15 minutes 10:14:52 Procedure and supply charges have been captured, reviewed, submitted and are correct. 10:14:57 Procedure Complication : No complications 10:14:59 Vital chart was stopped 10:15:00 See physician's report for complete and final results. 10:15:05 Report given to Med II. 10:15:07 Patient transfered to Med II with Stretcher. 10:15:10 Procedure ended. 10:15:10 Full Disclosure recording stopped 10:15:15 End room use (Document Last) Device Usage Item Name Manufacture Quantity Catalog Number Hospital Part Current M inimal Lot# / Charge Number Stock Stock Serial# Code ACIST Syringe Acist 1 96017 895251 426877 686589 2 0 (29088) [employer] Bag Decanter Microtek 1 772867 13923 952492 5 () Medical Inc. Medline Cath Cardinal 1 [id number] 977537 72479 689531 5 Pack Health ([id number]) DIAGNOSTIC WIRE St Isael 1 [id number] 536295 390658 950674 3 0 .035 260cm J wire (897839) ACIST Hand Acist 1 87101 523470 209915 142909 5 Control (47549) [employer] ACIST Manifold Acist 1 75647 564734 618004 593260 5 (64518) [employer] Inc DIAGNOSTIC Cardinal 1 XX2656 519018 85860 863436 3 0 Multipack 5Fr Health catheter set ([id number]) Tegaderm 4 x 4 3M 1 1626W 655037 808786 187470 5 (1626W) SHEATH Prelude Merit 1 [id number] 545485 088166 271659 5 5Fr 0.035 Medical ([id number]-[id number]) MULTIPACK JL Cardinal 1 [id number] 5 4.0 5Fr Health catheter MULTIPACK 3DRC Cardinal 1 702789 5 5Fr catheter Health DIAGNOSTIC AR Cardinal 1 [id number] 876211 699537 628501 1 5 MOD 5Fr Health Catheter ([id number]) DIAGNOSTIC IM Cardinal 1 [id number] 724110 601655 554087 5 5Fr catheter Health (708843W) MULTIPACK Cardinal 1 [id number] 5 Pigtail 5 Fr Health catheter EXOSEAL 5Fr Cardinal 1 EX500 080440 785380 132540 1 0 (EX500) Health Signature Audit [place] Stage Time Signature Unsigned Intra-Procedure 02/20/2018 Nithya Monte 10:20:26 AM RT(R) Signatures Monitor : Nithya Monte RT Signature : Date : Time : [address] [place] [address]
[2018-02-19 17:20] LABS: HEMATOCRIT 43.8 % (42.0-54.0); HEMOGLOBIN 15.3 g/dL (13.5-17.5); MCHC 34.9 g/dL (31.0-37.0); MCV 88.7 fL (80.0-100.0); PLATELET COUNT 224 10x3/uL (130-400); RBC 4.94 10x6/uL (4.20-6.10); RDW 13.6 % (11.5-14.5); WBC 6.5 10x3/uL (4.8-10.8)
[2018-02-19 17:36] LABS: APTT 29.2 SECONDS (22.8-39.4); INR 0.94 (0.85-1.17); PROTIME 12.2 SECONDS (11.6-15.0)
[2018-02-19 17:45] LABS: ALBUMIN 3.5 g/dL (3.4-5.0); ALKALINE PHOSPHATASE 58 U/L (46-116); ALT (SGPT) 17 U/L (10-68); BILIRUBIN - TOTAL 0.12 mg/dL (0.2-1.3); CALC OSMOLALITY 279 mosm/kg (275-300); CALCIUM 8.6 mg/dL (8.5-10.1); CARBON DIOXIDE 26.6 mmol/L (21.0-32.0); CHLORIDE - SERUM 105 mmol/L (98-107); CREATININE - SERUM 0.9 mg/dL (0.6-1.3); GLUCOSE 103 mg/dL (74-106); POTASSIUM - SERUM 4.3 mmol/L (3.5-5.1); PROTEIN - SERUM 6.9 g/dL (6.4-8.2); SODIUM 141 mmol/L (136-145); UREA NITROGEN 11 mg/dL (7-18); eGFR NON AFRICAN AMERICAN > 90 mL/min (90-120)
[2018-02-19 17:56] LABS: CKMB 0.9 U/L (0.0-3.6); CREATINE KINASE 60 UL (21-232)
[2018-02-19 18:04] LABS: EOSINOPHILS 11 % (0-7); LYMPHOCYTES 52 % (15-50); MONOCYTES 2 % (2-11); NEUTROPHILS 35 % (40-80); PLATELET ESTIMATE NORMAL; TEAR DROP CELLS OCC; TROPONIN-I < 0.017 ng/mL (0.000-0.060)
[2018-02-19 19:00] VITALS: BP 122/79
[2018-02-19 20:26] VITALS: BP 157/84; Ht 166.4 cm; Wt 63.6 kg
[2018-02-19 20:42] VITALS: BP 157/84
[2018-02-20 01:36] VITALS: BP 105/73
[2018-02-20 01:52] LABS: CKMB 0.8 U/L (0.0-3.6); CREATINE KINASE 45 UL (21-232)
[2018-02-20 01:54] LABS: TROPONIN-I < 0.017 ng/mL (0.000-0.060)
[2018-02-20 06:04] VITALS: BP 105/72
[2018-02-20 06:58] LABS: CKMB 0.8 U/L (0.0-3.6); CREATINE KINASE 47 UL (21-232)
[2018-02-20 07:01] LABS: TROPONIN-I < 0.017 ng/mL (0.000-0.060)
[2018-02-20 08:08] LABS: BASOPHILS 0.4 % (0-2); EOSINOPHILS 8.4 % (0-7); HEMATOCRIT 42.5 % (42.0-54.0); HEMOGLOBIN 14.7 g/dL (13.5-17.5); LYMPHOCYTES 50.6 % (15-50); MCH 30.9 pg (26.0-34.0); MCHC 34.6 g/dL (31.0-37.0); MCV 89.3 fL (80.0-100.0); MEAN PLATELET VOLUME 10.5 fL (7.4-10.4); MONOCYTES 7.5 % (2-11); NEUTROPHILS 33.1 % (40-80); PLATELET COUNT 223 10x3/uL (130-400); RBC 4.76 10x6/uL (4.20-6.10); RDW 13.8 % (11.5-14.5)
[2018-02-20 08:09] LABS: WBC 4.7 10x3/uL (4.8-10.8)
[2018-02-20 08:12] LABS: CALC OSMOLALITY 276 mosm/kg (275-300); CALCIUM 8.2 mg/dL (8.5-10.1); CARBON DIOXIDE 27.2 mmol/L (21.0-32.0); CHLORIDE - SERUM 105 mmol/L (98-107); CREATININE - SERUM 0.8 mg/dL (0.6-1.3); GLUCOSE 80 mg/dL (74-106); POTASSIUM - SERUM 4.6 mmol/L (3.5-5.1); SODIUM 140 mmol/L (136-145); UREA NITROGEN 9 mg/dL (7-18); eGFR NON AFRICAN AMERICAN > 90 mL/min (90-120)
[2018-02-20 08:34] VITALS: BP 104/82
== END 2018-02-20 12:57 | disposition home or self-care (01) ==
LOC: D.ER 16:59 → D.EDHOLD 19:20 → D.CLR 19:20 → OBSVTIME 19:20 → D.M2 19:20 → D.CLR 02-20 10:43
PROVIDERS: Emergency Medicine; Internal Medicine Cardiovascular Disease
DX: I25.110 Atherosclerotic heart disease of native coronary artery with unstable angina pectoris (principal); Z95.5 Presence of coronary angioplasty implant and graft; Z95.1 Presence of aortocoronary bypass graft; I10 Essential (primary) hypertension

== ENCOUNTER 2018-04-07 19:02 | Emergency (ER) | payer MEDICARE ==
[~2018-04-07] VITALS: Ht 166.4 cm; Wt 68.2 kg
[2018-04-07 19:13] VITALS: Ht 166.4 cm; Wt 68.2 kg
[2018-04-07 20:42] LABS: HEMATOCRIT 40.6 % (42.0-54.0); HEMOGLOBIN 14.2 g/dL (13.5-17.5); MCH 30.9 pg (26.0-34.0); MCV 88.5 fL (80.0-100.0); MEAN PLATELET VOLUME 10.5 fL (7.4-10.4); RBC 4.59 10x6/uL (4.20-6.10); RDW 14.2 % (11.5-14.5); WBC 6.6 10x3/uL (4.8-10.8)
[2018-04-07 20:45] LABS: PLATELET COUNT 271 10x3/uL (130-400)
[2018-04-07 20:46] LABS: ALBUMIN 3.6 g/dL (3.4-5.0); ALKALINE PHOSPHATASE 76 U/L (46-116); ALT (SGPT) 27 U/L (10-68); BILIRUBIN - TOTAL 0.26 mg/dL (0.2-1.3); CALC OSMOLALITY 276 mosm/kg (275-300); CALCIUM 8.4 mg/dL (8.5-10.1); CARBON DIOXIDE 23.1 mmol/L (21.0-32.0); CHLORIDE - SERUM 103 mmol/L (98-107); CREATININE - SERUM 0.9 mg/dL (0.6-1.3); GLUCOSE 94 mg/dL (74-106); POTASSIUM - SERUM 3.5 mmol/L (3.5-5.1); PROTEIN - SERUM 7.5 g/dL (6.4-8.2); SODIUM 139 mmol/L (136-145); TROPONIN-I < 0.017 ng/mL (0.000-0.060); UREA NITROGEN 11 mg/dL (7-18); eGFR NON AFRICAN AMERICAN > 90 mL/min (90-120)
[2018-04-07 21:48] LABS: EOSINOPHILS 4 % (0-7); LYMPHOCYTES 55 % (15-50); MONOCYTES 7 % (2-11); NEUTROPHILS 34 % (40-80); PLATELET ESTIMATE NORMAL
[2018-04-07 22:48] VITALS: BP 101/60
== END 2018-04-07 22:49 | disposition home or self-care (01) ==
LOC: D.ER 19:02
PROVIDERS: Family Medicine
DX: R07.89 Other chest pain (principal); I95.9 Hypotension, unspecified; F17.200 Nicotine dependence, unspecified, uncomplicated

== ENCOUNTER 2019-11-25 13:42 | Inpatient (IN) | payer MEDICARE ==
[~2019-11-25] VITALS: Ht 166.4 cm; Wt 72.1 kg
--- NOTE | ~2019-11-25 | HEMODYNAMI ---
PATIENT:NUHA HUMPHREYS MEDICAL RECORD: [id number] : 65 LOC[id number] ADMISSION DATE: 11/26/19 Generatedon:11/27/20198:32 Patient name: NUHA HUMPHREYS Patient #: [id number] : 1965 Date of study: 11/27/2019 Page: Of Hemodynamic Procedure Report Patient Data Patient Demographics Procedure consent was obtained First Name: NUHA Gender: Male Last Name: PETR : 1965 Middle Initial: SEDA Age: 54 year(s) Patient #: [id number] Race: SSN: [id number] Additional ID: [id number] Contact details [address]: [address] [place] [address] State: [place] City: [place] Zip code: [address] Past Medical History History of disease Date Diagnosis Comments CAD Allergies: No known allergies Admission Admission Data Admission Date: 11/26/2019 Admission Time: 15:07 Arrival Date: 11/27/2019 Arrival Time: 0:00 Admit Source: Emergency Insurance Payor: Medicare department HIC #: [id number] Room #: [facility] Height (in.): 65.35 BSA: 1.8 (m2) Height (cm.): 166 BMI: 26.13 (kg/m2) Weight (lbs.): 158.73 Weight (kg.): 72 Lab Results Lab Result Date: 11/27/2019 Lab Result Time: 0:00 Biochemistry Name Units Result Min Max BUN mg/dl 13 --(--*-)-- 7 18 Creatinine mg/dl 1.1 --(--*-)-- 0.6 1.3 eGFR ml/min 73.65726 *-(----)-- 90 120 NONAFRICAN CBC Name Units Result Min Max Hemoglobin g/dl 15.4 --(-*--)-- 13.5 17.5 Procedure Procedure Types Cath Procedure Diagnostic Procedure Sedation Charges Moderate Sedation up to 15 minutes PCI Procedure Coronary Stent Coronary Stent Initial Hemochron ACT Test Procedure Description Procedure Date Procedure Date: 11/27/2019 Procedure Start Time: 8:00 Procedure End Time: 8:30 Procedure Staff Name Function Ralph Mcnally MD Performing Physician Elsie Gutierrez RT Monitor Nithya Monte RT Scrub Aislinn Salazar RN Nurse Indication Angina Procedure Data Cath Procedure Fluoroscopy Diagnostic fluoroscopy Total fluoroscopy Time: 7.1 time: 7.1 min min Diagnostic fluoroscopy Total fluoroscopy dose: 386 dose: 386 mGy mGy Contrast Material Contrast Material Type Amount (ml) Isovue 370 64 Entry Location Entry Primary Successful Side Size Upsize Upsize Entry Closure Succes sful Closure Location (Fr) 1 (Fr) 2 (Fr) Remarks Device Remarks Femoral Right 6 Fr Exoseal artery Short Estimated blood loss: 10 ml Procedure Complications No complications Procedure Medications Medication Administration Route Dosage Oxygen etCO2 Nasal cannula 2 l/min Lidocaine 2% added to field 20 Heparin Flush Bag added to field 2 bags (1000units/500ml NS) 0.9% NaCl I.V. 100 ml/hr Versed I.V. 1 mg Fentanyl I.V. 50 mcg Plavix P.O. 300 mg Fentanyl I.V. 25 mcg Heparin Bolus I.V. 7000 units Nitroglycerin IC/IA I.C. 200 mcg Hemodynamics Rest BSA: 1.8 (m2) HGB: 15.4 (g/dl) O2 Consumption: Estimated: 205.6 (ml/min) O2 Cons umption indexed: Estimated:114.22 (ml/min/m) Heart Rate: 58 (bpm) Snapshots Pre Cath Intra NCS Post Cath Vital Signs Time Heart Resp SPO2 etCO2 NIBP (mmHg) Rhythm Pain Status Sedation Rate (ipm) (%) (mmHg) Level (bpm) 7:47:14 60 15 99 0 135/76(96) NSR 2 (11) , 10(A) Uncomfortable 7:51:22 55 22 100 0 131/81(120) NSR 2 (11) , 10(A) Uncomfortable 7:55:36 55 22 99 0 124/77(96) NSR 2 (11) , 10(A) Uncomfortable 7:59:50 62 17 100 23.9 110/63(76) NSR 2 (11) , 10(A) Uncomfortable 8:03:58 71 17 100 33.7 99/72(85) NSR 2 (11) , 10(A) Uncomfortable 8:08:03 58 15 100 34.5 109/66(76) NSR 2 (11) , 10(A) Uncomfortable 8:12:16 62 16 99 0 88/56(71) NSR 2 (11) , 10(A) Uncomfortable 8:16:19 60 18 100 26.9 101/63(75) NSR 0 (11) , No 10(A) pain 8:20:23 60 15 100 20.2 101/71(82) NSR 0 (11) , No 10(A) pain 8:24:31 63 14 98 33.7 101/64(84) NSR 0 (11) , No 10(A) pain 8:28:42 65 6 100 41.2 114/74(86) NSR 0 (11) , No 10(A) pain Medications Time Medication Route Dose Verified Delivered Reason Notes Effectiveness by by 7:58:18 Plavix P.O. 300 Ralph Tao used for ordere d mg Uli Salazar RN procedure as a preop order, not given on med floor. 7:58:33 Oxygen etCO2 2 Ralph Tao used for Nasal l/min Uli Salazar RN procedure cannula 7:58:39 Lidocaine 2% added 20ml Ralph Benson for local to vial Uli Mcnally MD anesthetic field 7:58:45 Heparin Flush added 2 Ralph Benson used for Bag to bags Uli Mcnally MD procedure (1000units/500ml field NS) 7:58:54 0.9% NaCl I.V. 100 Ralph Tao Per physician ml/hr Uli Salazar RN 7:59:05 Versed I.V. 1 mg Ralph Tao for sedation Uli Salazar RN 7:59:11 Fentanyl I.V. 50 Ralph Tao for sedation mcg Uli Salazar RN 8:05:30 Fentanyl I.V. 25 Ralph Tao for sedation mcg Uli Salazar RN 8:08:29 Heparin Bolus I.V. 7000 Ralph Tao for verifi ed units Uli Salazar RN anticoagulation with dr benson 8:19:53 Nitroglycerin I.C. 200 Ralph Benson for IC[place] [facility] [place] Mc[place]ally MD anticoagulation Procedure Log Time Note 7::17 Diagnostic Cath Status : Urgent 7:19:43 Indication : Angina 7:20:03 Informed consent obtained and on chart 7:: Arrival Date: 11/27/2019 12:00:00 AM 7:23:18 Admit Source: Emergency department 7:23:23 Insurance Payor : Medicare 7:23:29 Patient Height : 65.35 inches 7:23:32 Patient Weight : 158.73 lbs 7:24:15 Lab Result : BUN 13 mg/dl 7:24:15 Lab Result : eGFR NONAFRICAN 73.85605 ml/min 7:24:15 Lab Result : Hemoglobin 15.4 g/dl 7::15 Lab Result : Creatinine 1.1 mg/dl 7:24:25 Procedure Status PCI. 7:24:29 Time tracking: Regular hours (M-F 7:00 - 5:00) 7:24:33 Plan of Care:Hemodynamics will remain stable., Cardiac rhythm will remain stable., Comfort level will be maintained., Respiratory function will remain adequate., Patient/ family verbilizes understanding of procedure., Procedure tolerated without complication., Recovers from procedure without complications.. 7:28:00 Aislinn Salazar RN sent for patient. Start room use. 7:30:19 Risk of Mortality: 0.1 7:30:22 Risk of blood transfusion: 0.3 7:30:30 Risk of ROBLES: 0.8 7:30:53 2) 60-89 Mildly reduced kidney function, and other findings (as for stage 1) point to kidney disease. 7:30:58 Maximum allowable contrast dose (3.7 X eGFR X 0.75)205 ml. 7:41:57 Patient received from Med II to CCL 1 Alert and oriented. Tansferred to table in Supine position. 7:41:58 Warm blankets applied, and lauren hugger turned on for patient comfort. 7:41:59 Correct patient and procedure confirmed by team. 7:41:59 ECG and BP/O2 sat monitors applied to patient. 7:46:08 Vital chart was started 7:46:12 Baseline sample Acquired. 7:46:15 Rhythm: sinus bradycardia 7:46:16 Full Disclosure recording started 7:46:24 H&P Date Dictated: 11/25/2019 ER History on chart.. 7:46:32 Patient allergic to No known allergies 7:46:35 Pre-procedure instructions explained to patient. 7:46:35 Pre-op teaching completed and patient verbalized understanding. 7:46:40 Patient NPO since Midnight. 7:47:10 Is patient on blood thinner?Yes 7:47:12 ACC The patient was administered the following blood thiners within the last 24 hours: ACCPlavix 7:47:15 Patient diabetic? No. 7:47:17 Previous problem with sedation/anesthesia? No ? 7:47:18 Snore? Yes 7:47:19 Sleep apnea? Yes 7:47:21 Deviated septum? No 7:47:22 Opens mouth fully? Yes 7:47:22 Sticks out tongue? Yes 7:47:25 Airway obstruction? Yes COPD 7:47:28 Dentures? No ? 7:47:30 Pre procedure: right dorsailis pedis pulse 1+ Palpable, but thready & weak; easily obliterated 7:47:33 Patient pain scale 0/10 ?. 7:47:41 Lab results completed and on chart. 7:47:44 Right groin area was prepped with chlora-prep and draped in sterile fashion 7:47:45 Alarms reviewed by R. N. 7:47:46 Sharps counted by scrub and verified by R.N. 7:48:11 Use device set CATH PACK 7:48:12 ACIST Syringe (85256) opened to sterile field. 7:48:13 ACIST Hand Control (94086) opened to sterile field. 7:48:13 ACIST Manifold (50683) opened to sterile field. 7:48:13 Medline Cath Pack ([id number]) opened to sterile field. 7:48:14 Bag Decanter (2002S) opened to sterile field. 7:48:15 MARTYALD Guide Wire (198-676) opened to sterile field. 7:48:58 SHEATH 6FR [place] (LVS277) opened to sterile field. 7:48:58 INFLATOR Merit BasixCompak (DT1198) opened to sterile field. 7:48:59 COPILOT Valve Control ([id number]) opened to sterile field. 7:48:59 BMW 190cm [place] 2 J wire ([id number]) opened to sterile field. 7:48:59 MICROPUNCTURE 4FR Cook (L28864) opened to sterile field. 7:54:49 --------ALL STOP TIME OUT------ 7:54:50 Final Timeout: patient, procedure, and site verified with staff and physician. All members of the team are in agreement. 7:54:53 Right groin site verified by team. 7:55:15 Fire Safety Assessment: A--An alcohol-based skin anteseptic being used preoperatively., C--Open oxygen or nitrous oxide is being used., D--An ESU, laser, or fiber-optic light is being used. 7:55:18 Physical assessment completed. ASA score P 2 - A patient with mild systemic disease as per Ralph Mcnally MD. 7:55:22 Sedation plan: IV Moderate Sedation Medication:Versed, Fentanyl 7:58:18 Plavix 300 mg P.O. was administered by Aislinn Salazar RN; used for procedure; ordered as a preop order, not given on med floor. Verbal order read back and verified. 7:58:33 Oxygen 2 l/min etCO2 Nasal cannula was administered by Aislinn Salazar RN; used for procedure; Verbal order read back and verified. 7:58:39 Lidocaine 2% 20ml vial added to field was administered by Ralph Mcnally MD; for local anesthetic; Verbal order read back and verified. 7:58:45 Heparin Flush Bag (1000units/500ml NS) 2 bags added to field was administered by Ralph Mcnally MD; used for procedure; Verbal order read back and verified. 7:58:54 0.9% NaCl 100 ml/hr I.V. was administered by Aislinn Salazar RN; Per physician; Verbal order read back and verified. 7:59:05 Versed 1 mg I.V. was administered by Aislinn Salazar RN; for sedation; Verbal order read back and verified. 7:59:11 Fentanyl 50 mcg I.V. was administered by Aislinn Salazar RN; for sedation; Verbal order read back and verified. 8:00:19 Procedure started. 8:00:26 Local anesthetic to right radial artery with Lidocaine 2% by Ralph Mcnally MD.INITIAL ACCESS ONLY 8:03:43 A 6 Fr Short sheath was inserted into the Right Femoral artery 8:05:30 Fentanyl 25 mcg I.V. was administered by Aislinn Salazar RN; for sedation; Verbal order read back and verified. 8:07:32 GUIDE 6FR AJAY catheter (LA6IMA) opened to sterile field. 8:08:21 6 Fr AJAY guide catheter was inserted over the wire 8:08:29 Heparin Bolus 7000 units I.V. was administered by Aislinn Salazar RN; for anticoagulation; verified with dr benson Verbal order read back and verified. 8:10:39 Pre PCI Site: LI Graft LAD has 90% stenosis. 8:10:41 BMW 190 wire advanced. 8:13:04 Wire advanced across lesion. 8:15:29 Place stent Inflation Number: 1 A HECTOR RX 2.25 x 18 stent ([id number]) was prepped and advanced across the LI -> Dist LAD 90. The stent was deployed at 12 JODI for 0:00 (min:sec) . 8:15:46 Inflation number: 2 The stent balloon was then re-inflated across the LI -> Dist LAD 90 to 8 JODI for 0:00 (min:sec) . 8:16:31 Stent catheter was removed intact over wire. 8:18:51 Wire removed. 8:19:53 Nitroglycerin IC/IA 200 mcg I.C. was administered by Ralph Mcnally MD; for anticoagulation; Verbal order read back and verified. 8:21:53 Guide catheter removed. 8:22:12 EXOSEAL 6Fr (EX600) opened to sterile field. 8:23:18 Sheath removed intact; hemostasis achieved with Exoseal to the Right Femoral artery. 8:23:53 Procedure ended.(Physican Out) 8:24:14 Fluoroscopy time 07.10 minutes. 8:24:17 Flurop Dose total: 386 8:24:17 Fluoroscopy dose: 386 mGy 8:24:23 Dose Area Product 04421 mGy/cm. 8:24:27 Contrast amount:Isovue 370 64ml. 8:24:35 Maximum allowable dose exceeded? No. 8:24:37 Sharps counted by scrub and verified by R.N. 8:24:42 Post-op/insertion site Right Femoral artery dressed using a 4 x 4 and Tegaderm. 8:24:47 Post right femoral artery:stable, soft, clean and dry 8:24:49 Post Procedure Pulses reassessed and unchanged 8:24:52 Post procedure: right dorsailis pedis pulse 2+ Normal; easily identifiable; not easily obliterated. 8:24:55 Post-procedure physical assessment completed. ASA score P 2 - A patient with mild systemic disease as per Ralph Mcnally MD. 8:24:59 Post procedure rhythm: unchanged. 8:25:02 Estimated blood loss: 10 ml 8:25:03 Post procedure instruction explained to patient.Patient verbalizes understanding. 8:25:04 Patient needs reinforcement of post procedure teaching. 8:26:24 Procedure type changed to Cath procedure, Diagnostic procedure, Sedation Charges, Moderate Sedation up to 15 minutes, PCI procedure, Coronary Stent, Coronary Stent Initial, Hemochron ACT Test 8:26:38 ACT drawn and resulted at out of range high seconds. (normal therapeutic range 180-240 seconds). 8:29:24 Procedure and supply charges have been captured, reviewed, submitted and are correct. 8:29:28 Procedure Complication : No complications 8:29:31 Vital chart was stopped 8:30:10 [facility] Findings: MVD- PCI performed (see procedure note) 8:30:12 Operative report dictated upon procedure completion. 8:30:12 See physician's report for complete and final results. 8:30:14 Report given to [facility]. 8:30:17 Patient transfered to [facility] with Bed. 8:30:19 Procedure ended. 8:30:19 Full Disclosure recording stopped 8:30:32 ACC-PCI Only Patient was given prescriptions, or instructed by Ralph Mcnally MD to start/continue the following medications upon discharge: Plavix 8:30:33 End room use (Document Last) 8:31:12 End room use (Document Last) 8:31:51 End room use (Document Last) Intervention Summary Intervention Notes Time ActionType Lesion and Equipment Used Action# Pressure Duration Attributes 8:15:29 Place stent LI -> HECTOR RX 2.25 x 1 12 00:00 Dist LAD 18 stent ([id number]) 8:15:46 Reinflate LI -> HECTOR RX 2.25 x 2 8 00:00 stent Dist LAD 18 stent balloon ([id number]) Device Usage Item Name Manufacture Quantity Catalog [facility] Lot# / Number Charge Number Stock Stock Serial# Code ACIST Syringe Acist 1 85049 807252 478467 [id number] 20 (53941) Medical Systems Inc ACIST Hand Acist 1 01311 747468 893873 671723 5 Control Medical (06851) Systems Inc ACIST Manifold Acist 1 40734 886090 753007 572551 5 (38208) Medical Systems Inc Medline Cath Medline 1 [id number] 109551 03913 511988 5 Pack ([id number]) Bag Decanter Microtek 1 2001S 748314 75916 697088 5 (2001S) Medical Inc. EMERALD Guide Cardinal 1 502-455 956429 562346 079848 5 Wire (502-455) Health SHEATH 6FR Terumo 1 HOP641 457683 167458 082194 40 [place] (NEW214) INFLATOR Merit Merit 1 RY3287 209447 762219 950471 15 [facility] (KL1255) COPILOT Valve Rogers 1 0089553 231129 954517 559312 5 Control Vascular (9156691) BMW 190cm Rogers 1 [id number] 200827 03393 331868 5 [place] 2 J Vascular wire (0045144S) MICROPUNCTURE Cook Medical 1 R60912 427117 350039 409398 5 4FR Cook (N40947) GUIDE 6FR AJAY Medtronic 1 LA6IMA 101316 93726 918862 1 catheter (LA6IMA) HECTOR RX 2.25 x Medtronic 1 [id number] 7376561 994494 5 [id number] 18 stent ([id number]) EXOSEAL 6Fr Cardinal 1 EX600 208370 248423 302840 10 (EX600) Health Signature Audit [place] Stage Time Signature Unsigned Intra-Procedure 11/27/2019 Elsie Gutierrez 8:31:12 AM RT(R) Intra-Procedure 11/27/2019 Aislinn Salazar RN 8:31:51 AM Intra-Procedure 11/27/2019 Ralph Mcnally MD 8:32:33 AM [facility] [address] [place] [address]
--- NOTE | ~2019-11-25 | HEMODYNAMI ---
PATIENT:NUHA HUMPHREYS MEDICAL RECORD: [id number] : 65 [id number] ADMISSION DATE: 11/25/19 Generatedon:11/26/201914:49 Patient name: NUHA HUMPHREYS Patient #: [id number] : 1965 Date of study: 11/26/2019 Page: Of Hemodynamic Procedure Report Patient Data Patient Demographics Procedure consent was obtained First Name: NUHA Gender: Male Last Name: PETR : 1965 Middle Initial: SEDA Age: 54 year(s) Patient #: [id number] Race: SSN: [id number] Additional ID: [id number] Contact details [address]: [address] [place] [address] State: [place] City: [place] Zip code: [address] Past Medical History History of disease Date Diagnosis Comments CAD Allergies: No known allergies Admission Admission Data Admission Date: 11/25/2019 Admission Time: 15:05 Room #: [facility] Procedure Procedure Types Cath Procedure Diagnostic Procedure LHC LHC w/Coronaries w/Grafts Sedation Charges Moderate Sedation up to 15 minutes Procedure Description Procedure Date Procedure Date: 11/26/2019 Procedure Start Time: 14:23 Procedure End Time: 14:45 Procedure Staff Name Function Ralph Mcnally MD Performing Physician Nithya Monte RT Monitor Elsie Gutierrez RT Scrub Aislinn Salazar RN Nurse Procedure Data Cath Procedure Fluoroscopy Diagnostic fluoroscopy Total fluoroscopy Time: 5.5 time: 5.5 min min Diagnostic fluoroscopy Total fluoroscopy dose: 596 dose: 596 mGy mGy Contrast Material Contrast Material Type Amount (ml) Isovue 300 55 Entry Location Entry Primary Successful Side Size Upsize Upsize Entry Closure Vergara ccessful Closure Location (Fr) 1 (Fr) 2 (Fr) Remarks Device Remarks Radial Right 6 Fr Mechanical artery Short Compression Estimated blood loss: 5 ml Diagnostic catheters Device Type Used For End Catheter Placement DIAGNOSTIC [place] 110cm 5 Multi-vessel Fr catheter (198501) Angiography Merit impress Holder 2 Multi-vessel cath 100cm ([id number]) Angiography Procedure Complications No complications Procedure Medications Medication Administration Route Dosage Oxygen etCO2 Nasal cannula 2 l/min Lidocaine 2% added to field 20 Heparin Flush Bag added to field 2 bags (1000units/500ml NS) Versed I.V. 1 mg Fentanyl I.V. 50 mcg 0.9% NaCl I.V. bolus 500 ml Hemodynamics Rest Heart Rate: 64 (bpm) Pressure Samples Time Site Value (mmHg) Purpose Heart Use Rate(bpm) 14:29 LV 78/-10,-5 Snapshot 69 Gradients Valve Time Site Site Mean SEP/DFP Peak To Heart Use 1 2 (mmHg) (sec/min) Peak Rate (mmHg) (bpm) Aortic 14:30 LV AO 68 Snapshots Pre Cath Intra NCS Post Cath Vital Signs Time Heart Resp SPO2 etCO2 NIBP (mmHg) Rhythm Pain Sedation Rate (ipm) (%) (mmHg) Status Level (bpm) 14:18:12 61 21 100 32.2 131/83(103) NSR 0 (11) 10(A) , No pain 14:22:22 63 13 98 32.9 109/68(92) NSR 0 (11) 10(A) , No pain 14:26:29 59 12 98 33.7 111/67(90) NSR 0 (11) 10(A) , No pain 14:30:46 68 12 95 32.9 85/57(71) NSR 0 (11) 10(A) , No pain 14:35:35 69 11 96 32.2 99/70(77) NSR 0 (11) 10(A) , No pain 14:39:32 65 12 96 34.4 101/73(84) NSR 0 (11) 10(A) , No pain 14:43:38 57 19 99 31.4 114/66(85) NSR 0 (11) 10(A) , No pain Medications Time Medication Route Dose Verified Delivered Reason Notes Eff ectiveness by by 14:20:09 Oxygen etCO2 2 Norred Buffie used for Nasal l/min Uli Salazar reconciliation clerk cannula 14:20:16 Lidocaine 2% added 20ml Norred Norred for local to vial Uli Mcnally MD anesthetic field 14:20:22 0.9% NaCl I.V. 500 Norred Buffie Per bolus ml Uli MD Salazar RN physician 14:20:22 Heparin Flush added 2 Norred Norred used for Bag to bags Uli Mcnally MD procedure (1000units/500ml field NS) 14:21:42 Versed I.V. 1 mg Ralph Wellsie for Uli Salazar RN sedation 14:21:47 Fentanyl I.V. 50 Norred Buffie for mcg Uli Salazar RN sedation Procedure Log Time Note 13:41:49 Diagnostic Cath Status : Urgent 13:42:28 Informed consent obtained and on chart 13:43:59 Procedure Status Urgent Heart Cath (IP). 13:44:01 Elsie Matt RT(R) sent for patient. Start room use. 13:44:02 Time tracking: Regular hours (M-F 7:00 - 5:00) 13:44:08 Plan of Care:Hemodynamics will remain stable., Cardiac rhythm will remain stable., Comfort level will be maintained., Respiratory function will remain adequate., Patient/ family verbilizes understanding of procedure., Procedure tolerated without complication., Recovers from procedure without complications.. 14:17:04 Patient received from Med II to CCL 1 Alert and oriented. Tansferred to table in Supine position. 14:17:05 Warm blankets applied, and lauren hugger turned on for patient comfort. 14:17:06 Correct patient and procedure confirmed by team. 14:17:06 ECG and BP/O2 sat monitors applied to patient. 14:17:07 Baseline sample Acquired. 14:17:07 Vital chart was started 14:17:11 Rhythm: sinus rhythm 14:17:13 Full Disclosure recording started 14:17:17 H&P Date Dictated: 11/26/2019 New H&P dictated by physician.. 14:17:19 Pre-procedure instructions explained to patient. 14:17:20 Pre-op teaching completed and patient verbalized understanding. 14:17:22 Family unavailable. 14:17:23 Patient NPO since Midnight. 14:17:25 Is the patient allergic to Iodine/contrast media? No. 14:17:27 Was the patient premedicated? Yes 14:17:28 Is patient on blood thinner?Yes 14:17:32 ACC The patient was administered the following blood thiners within the last 24 hours: ACCPlavix 14:17:34 Patient diabetic? No. 14:17:38 Previous problem with sedation/anesthesia? No ? 14:17:40 Snore? Yes 14:17:41 Sleep apnea? Yes 14:17:42 Deviated septum? No 14:17:42 Opens mouth fully? Yes 14:17:44 Sticks out tongue? Yes 14:17:48 Airway obstruction? Yes copd 14:17:53 Dentures? Yes in tight 14:17:56 Pre procedure: right dorsailis pedis pulse 2+ Normal; easily identifiable; not easily obliterated 14:17:59 Pre procedure: left dorsailis pedis pulse 2+ Normal; easily identifiable; not easily obliterated 14:18:01 Patient pain scale 0/10 ?. 14:18:07 IV patent on arrival in right forearm with 0.9% NaCl at [facility]. 14:18:13 Lab results completed and on chart. 14:18:17 Risk of Mortality: 0.1 14:18:21 Risk of blood transfusion: 0.2 14:18:24 Risk of ROBLES: 0.6 14:18:29 Right Radial & Right Groin area was prepped with chlora-prep and draped in sterile fashion 14:18:30 Alarms reviewed by R. N. 14:18:30 Sharps counted by scrub and verified by R.N. 14:18:32 Physician arrived 14:18:32 --------ALL STOP TIME OUT------ 14:18:33 Final Timeout: patient, procedure, and site verified with staff and physician. All members of the team are in agreement. 14:18:34 Right Radial & Right Groin site verified by team. 14:18:43 Fire Safety Assessment: A--An alcohol-based skin anteseptic being used preoperatively., C--Open oxygen or nitrous oxide is being used., D--An ESU, laser, or fiber-optic light is being used. 14:18:46 Physical assessment completed. ASA score P 2 - A patient with mild systemic disease as per Ralph Mcnally MD. 14:19:33 2) 60-89 Mildly reduced kidney function, and other findings (as for stage 1) point to kidney disease. 14:20:09 Oxygen 2 l/min etCO2 Nasal cannula was administered by Buffie Salazar RN; used for procedure; Verbal order read back and verified. 14:20:16 Lidocaine 2% 20ml vial added to field was administered by Ralph Mcnally MD; for local anesthetic; Verbal order read back and verified. 14:20:22 0.9% NaCl 500 ml I.V. bolus was administered by Aislinn Salazar RN; Per physician; Verbal order read back and verified. 14:20:22 Heparin Flush Bag (1000units/500ml NS) 2 bags added to field was administered by Ralph Mcnally MD; used for procedure; Verbal order read back and verified. 14:20:26 Maximum allowable contrast dose (3.7 X eGFR X 0.75)230 ml. 14:20:37 Sedation plan: IV Moderate Sedation Medication:Versed, Fentanyl 14:20:42 Use device set Radial Dx or PCI 14:20:43 ACIST Syringe (89924) opened to sterile field. 14:20:43 Medline Cath Pack ([id number]) opened to sterile field. 14:20:43 Bag Decanter (2002S) opened to sterile field. 14:20:44 ACIST Hand Control (30247) opened to sterile field. 14:20:44 ACIST Manifold (61538) opened to sterile field. 14:20:45 Tegaderm 4 x 4 (1626W) opened to sterile field. 14:20:45 MBrace Wrist Support ([id number]) opened to sterile field. 14:20:46 NEEDLE Cook 21G 4cm Radial (Y91240) opened to sterile field. 14:20:47 EMERALD Guide Wire (067-161) opened to sterile field. 14:20:48 SHEATH 6FR RAIN (5143003) opened to sterile field. 14:21:42 Versed 1 mg I.V. was administered by Aislinn Salazar RN; for sedation; Verbal order read back and verified. 14:21:47 Fentanyl 50 mcg I.V. was administered by Aislinn Salazar RN; for sedation; Verbal order read back and verified. 14:23:07 Procedure started. 14:23:38 Zero performed for pressure channel P1 14:23:55 Local anesthetic to right radial artery with Lidocaine 2% by Ralph Mcnally MD.INITIAL ACCESS ONLY 14:24:03 A 6 Fr Short sheath was inserted into the Right Radial artery 14:27:16 A DIAGNOSTIC [place] 110cm 5 Fr catheter (245436) was advanced over the wire and used for Multi-vessel Angiography. 14:29:34 LV hemodynamics recorded. 14:29:35 LV gram done using PALACIOS 14::42 Zero performed for pressure channel P1 14:30:13 EF : 45 % 14:31:00 RCA angiography performed. 14:31:03 Injector settings: Ml/sec: 3, Volume: 6, 14:31:38 LCA angiography performed. 14:31:43 Injector settings: Ml/sec: 3, Volume: 6, 14:31:53 SVG to RCA occluded. 14:33:21 SVG to OM angiography performed. 14:35:02 Catheter removed. 14:35:46 Injector settings: Ml/sec: 3, Volume: 6, 14:36:55 A Per Vicess 2 cath 100cm ([id number]) was advanced over the wire and used for Multi-vessel Angiography. 14:40:55 Catheter removed. 14:41:07 Sheath removed intact; hemostasis achieved with Mechanical Compression to the Right Radial artery. 14:41:09 Procedure ended.(Physican Out) 14:41:19 Fluoroscopy time 05.50 minutes. 14:41:25 Flurop Dose total: 596 14:41:25 Fluoroscopy dose: 596 mGy 14:41:31 Dose Area Product 25.4 mGy/cm. 14:42:04 Contrast amount:Isovue 300 55ml. 14:42:42 Maximum allowable dose exceeded? No. 14:42:42 Sharps counted by scrub and verified by R.N. 14:42:45 [place] band inflated with 10cc of air. 14:42:46 Insertion/operative site no bleeding no hematoma. 14:43:03 Post right radial artery:stable 14:43:05 Post Procedure Pulses reassessed and unchanged 14:43:07 Post procedure rhythm: unchanged. 14:43:31 Estimated blood loss: 5 ml 14:43:32 Post procedure instruction explained to patient.Patient verbalizes understanding. 14:43:33 Patient needs reinforcement of post procedure teaching. 14:44:29 Procedure type changed to Cath procedure, Diagnostic procedure, LHC, LHC w/Coronaries w/Grafts, Sedation Charges, Moderate Sedation up to 15 minutes 14:44:36 Procedure and supply charges have been captured, reviewed, submitted and are correct. 14:44:40 Procedure Complication : No complications 14:44:42 Vital chart was stopped 14:44:47 [facility] Findings: MVD- MD will discuss options w/ pt 14:44:50 Operative report dictated upon procedure completion. 14:44:50 See physician's report for complete and final results. 14:44:52 Report given to [facility]. 14:44:56 Patient transfered to [facility] with Stretcher. 14:45:00 Procedure ended. 14:45:00 Full Disclosure recording stopped 14:45:09 End room use (Document Last) 14:47:36 ZEPHYR REGULAR TR BAND (451587) opened to sterile field. 14:48:02 ZEPHYR LARGE TR BAND (670160) opened to sterile field. 14:49:07 TR BAND Standard ([id number]) opened to sterile field. Device Usage Item Name Manufacture Quantity Catalog Hospital Part Current Minim al Lot# / Number Charge Number Stock Stock Serial# Code ACIST Acist 1 99198 001560 233335 949906 20 Syringe Medical (79291) Systems Inc Medline Cath Medline 1 [id number] 093266 04877 839473 5 Pack ([id number]) Bag Decanter Microtek 1 2002S 606045 42580 995997 5 (2002S) Medical Inc. ACIST Hand Acist 1 36076 969088 540210 597002 5 Control Medical (03797) Systems Inc ACIST Acist 1 79016 911044 896360 112662 5 Manifold Medical (47932) Systems Inc Tegaderm 4 x 3M 1 1626W 656365 320047 874697 5 4 (1626W) MBrace Wrist Advanced 1 140-0250-00 048782 94218 867934 5 Support Vascular ([id number]) Dynamics NEEDLE Revizer Medical 1 W99245 681326 641060 139604 5 21G 4cm Radial (F32502) EMERALD Cardinal 1 502-455 369272 861644 316155 5 Guide Wire [facility] (502-455) SHEATH 6FR Cardinal 1 2734002 689323 2345077 079673 5 [facility] (3735691) DIAGNOSTIC Terumo 1 40-5013 574704 577733 964236 5 [place] 110cm 5 Fr catheter (862891) Merit Merit 1 [id number] 540216 727239 0 impress Medical Holder 2 cath 100cm ([id number]) ZEPHYR Cardinal 1 189651 950071 2861898 858327 5 REGULAR TR Health BAND (346670) ZEPHYR LARGE Cardinal 1 768217 456098 3785400 277504 5 TR BAND Health (845777) TR BAND Terumo 1 [id number] 612822 564970 691247 40 Standard ([id number]) Signature Audit [place] Stage Time Signature Unsigned Intra-Procedure 11/26/2019 Nithya Monte 2:48:03 PM RT(R) Intra-Procedure 11/26/2019 Aislinn Salazar RN 2:49:07 PM Intra-Procedure 11/26/2019 Ralph Mcnally MD 2:49:25 PM [id number] [place] [address]
[2019-11-25 14:06] VITALS: BP 124/74
[2019-11-25 14:06] LABS: BASOPHILS 0.5 % (0-2); EOSINOPHILS 6.1 % (0-7); HEMATOCRIT 46.4 % (42.0-54.0); IMMATURE GRANULOCYTES 0.2 % (0-5); LYMPHOCYTES 48.4 % (15-50); MCH 32.1 pg (26.0-34.0); MCHC 34.5 g/dL (31.0-37.0); MONOCYTES 7.3 % (2-11); NEUTROPHILS 37.5 % (40-80); PLATELET COUNT 277 10x3/uL (130-400); RBC 4.99 10x6/uL (4.20-6.10); RDW 13.8 % (11.5-14.5)
[2019-11-25 14:14] LABS: INR 1.04 (0.85-1.17); PROTIME 13.5 SECONDS (11.6-15.0)
[2019-11-25 14:15] LABS: APTT 29.5 SECONDS (22.8-39.4)
[2019-11-25 14:24] LABS: CALC OSMOLALITY 269 mosm/kg (275-300); CALCIUM 8.9 mg/dL (8.5-10.1); CARBON DIOXIDE 27.5 mmol/L (21.0-32.0); CHLORIDE - SERUM 103 mmol/L (98-107); CREATININE - SERUM 1.3 mg/dL (0.6-1.3); GLUCOSE 102 mg/dL (74-106); POTASSIUM - SERUM 3.9 mmol/L (3.5-5.1); SODIUM 136 mmol/L (136-145); UREA NITROGEN 8 mg/dL (7-18); eGFR NON AFRICAN AMERICAN 61 mL/min (90-120)
[2019-11-25 14:30] VITALS: BP 125/74
--- NOTE | 2019-11-25 14:33 | NUR ---
PT DENIES RELIEF FROM CP OR PRESSURE. PT DOES REPORT CARRILLO NOW. EDP NOTIFIED.
[2019-11-25 14:39] LABS: ALKALINE PHOSPHATASE 75 U/L (30-120); ALT (SGPT) 29 U/L (10-68); BILIRUBIN - TOTAL 0.29 mg/dL (0.2-1.3); CREATINE KINASE 95 UL (21-232); MAGNESIUM - SERUM 2.1 mg/dL (1.8-2.4); PRO BNP 644 pg/mL (0-125); PROTEIN - SERUM 7.7 g/dL (6.4-8.2); TROPONIN-I < 0.017 ng/mL (0.000-0.060)
[2019-11-25 15:00] VITALS: BP 126/90
[2019-11-25] MEDS ORDERED: INCRUSE ELLI62.5 MCG INH (15:29)
[2019-11-25] MEDS ORDERED: PROAIR HFA8.5 G1 INH (15:29)
[2019-11-25 15:30] VITALS: BP 123/88
[2019-11-25] MEDS ORDERED: PEPCID AC20 MG PO (15:30)
[2019-11-25] MEDS ORDERED: SINGULAIR10 MG PO (15:30)
[2019-11-25] MEDS ORDERED: ISOSORBIDE DINI30 MG PO (15:30)
[2019-11-25] MEDS ORDERED: COREG 3.1253.125 MG PO (15:30)
[2019-11-25] MEDS ORDERED: LIPITOR40 MG PO (15:30)
[2019-11-25] MEDS ORDERED: ROPINIROLE HCL1 MG PO (15:30)
--- NOTE | 2019-11-25 15:46 | NUR ---
PT UPDATED ON PLAN OF CARE. PT DENIES NEEDS AT THIS TIME.
[2019-11-25 15:47] LABS: CREATINE KINASE 85 UL (21-232)
[2019-11-25 15:48] LABS: TROPONIN-I < 0.017 ng/mL (0.000-0.060)
--- NOTE | 2019-11-25 16:30 | NUR ---
PATIENT ARRIVES TO FLOOR VIA WHEELCHAIR FROM ER. AMBULATES TO BED, GAIT STEADY. ALERT AND ORIENTED X 4. TELEMETRY 60 SINUS RYTHYM. DENIES CHEST PAIN, NITRO PASTE ON CHEST. VITALS STABLE. REFUSE SCDS, UP AD AAMIR. DENIES ANY NEEDS AT THIS TIME. CONTINUE ADMISSION PROCESS AND CONTINUE USING SAFETY PRECAUTIONS.
[2019-11-25 17:05] VITALS: BP 153/91; BMI 26.2
[2019-11-25 20:00] VITALS: BP 138/87
--- NOTE | 2019-11-25 20:00 | NUR ---
INITIAL ROUNDS COMPLETED. PT RESTING IN BED. NO DISTRESS. SB/58 PER TELEMETRY. NPO FOR CARDIOLOGY CONSULT IN AM. CALL LIGHT IN REACH. CPOC.
[2019-11-25 21:36] LABS: CREATINE KINASE 79 UL (21-232); TROPONIN-I < 0.017 ng/mL (0.000-0.060)
[2019-11-26] VITALS: BP 130/80
--- NOTE | 2019-11-26 01:13 | NUR ---
PT HAS BEEN GIVEN TYLENOL FOR A SEVERE HEADACHE AND THE NITRO ON HIS LEFT CHESTWALL WAS REMOVED. HE DECLINED NEXT SCHEDULED DOSE AND ALSO STATES PAIN IS IN HIS HEAD, NOT CHEST PAIN AT THIS TIME. WEARING O2 @ 2L/NC BECAUSE HE FEELS SOB AND HEAVY CHESTED AT TIMES. NPO UNTIL AM FOR CARDIOLOGY CONSULT. CPOC.
[2019-11-26 02:51] LABS: BASOPHILS 0.3 % (0-2); EOSINOPHILS 6.8 % (0-7); HEMATOCRIT 44.4 % (42.0-54.0); HEMOGLOBIN 15.1 g/dL (13.5-17.5); IMMATURE GRANULOCYTES 0.2 % (0-5); LYMPHOCYTES 44.7 % (15-50); MCH 31.5 pg (26.0-34.0); MCV 92.7 fL (80.0-100.0); MEAN PLATELET VOLUME 9.6 fL (7.4-10.4); MONOCYTES 7.1 % (2-11); NEUTROPHILS 40.9 % (40-80); PLATELET COUNT 257 10x3/uL (130-400); RBC 4.79 10x6/uL (4.20-6.10); RDW 13.8 % (11.5-14.5); WBC 5.9 10x3/uL (4.8-10.8)
[2019-11-26 03:13] LABS: ALBUMIN 3.6 g/dL (3.4-5.0); ALKALINE PHOSPHATASE 65 U/L (30-120); ALT (SGPT) 27 U/L (10-68); BILIRUBIN - TOTAL 0.18 mg/dL (0.2-1.3); CALC OSMOLALITY 273 mosm/kg (275-300); CALCIUM 8.4 mg/dL (8.5-10.1); CARBON DIOXIDE 26.5 mmol/L (21.0-32.0); CHLORIDE - SERUM 103 mmol/L (98-107); CKMB 0.9 U/L (0.0-3.6); CREATINE KINASE 73 UL (21-232); GLUCOSE 108 mg/dL (74-106); POTASSIUM - SERUM 3.7 mmol/L (3.5-5.1); PROTEIN - SERUM 6.9 g/dL (6.4-8.2); SODIUM 137 mmol/L (136-145); TROPONIN-I < 0.017 ng/mL (0.000-0.060); UREA NITROGEN 10 mg/dL (7-18); eGFR NON AFRICAN AMERICAN 83 mL/min (90-120)
[2019-11-26 04:00] VITALS: BP 131/76
--- NOTE | 2019-11-26 07:15 | NUR ---
RECCEIVED PT IN BED EYES CLOSED RESP UNLABORED SKIN W/D COLOR WNL NAD NOTED WILL CONTINUE TO MONITOR
[2019-11-26 08:10] VITALS: BP 118/69
[2019-11-26 09:42] LABS: CHOL - HDL RATIO 4.3 ratio (2.3-4.9); LDL-HDL RATIO 2.5 ratio (1.5-3.5)
--- NOTE | 2019-11-26 10:07 | NUR ---
PT REFUSES SCDs
[2019-11-26 11:24] VITALS: BP 112/71
[2019-11-26 11:29] LABS: INR 0.99 (0.85-1.17); PROTIME 13.1 SECONDS (11.6-15.0)
[2019-11-26 11:31] LABS: D-DIMER-QUANTITATIVE < 0.27 ug/mLFEU (0.20-0.54)
[2019-11-26 12:24] VITALS: Ht 166.4 cm; Wt 72.1 kg
[2019-11-26 16:46] LABS: UDS - AMPHET NEGATIVE QUAL (NEGATIVE); UDS - BARB NEGATIVE QUAL (NEGATIVE); UDS - BENZO POSITIVE QUAL (NEGATIVE); UDS - COCAINE NEGATIVE QUAL (NEGATIVE); UDS - OPIATE NEGATIVE QUAL (NEGATIVE); UDS - PCP NEGATIVE QUAL (NEGATIVE); UDS - THC NEGATIVE QUAL (NEGATIVE)
[2019-11-26 16:47] LABS: BILIRUBIN NEGATIVE (NEGATIVE); GLUCOSE NEGATIVE (NEGATIVE); KETONE NEGATIVE (NEGATIVE); NITRITE NEGATIVE (NEGATIVE); UROBILINOGEN NORMAL (NORMAL)
[2019-11-26 17:41] VITALS: BP 98/64
--- NOTE | 2019-11-26 21:38 | NUR ---
1944 INITIAL ROUNDS, PT RESTING IN BED. TR BAND IN PLACE WITH NO AIR. NO BLEEDING OR SWELLING NOTED. ALERT/ORIENTED. VOICING NO PAIN OR DISCOMFORT. PPP X 4, SR/68 PER TELEMETRY. NONLABORED RESPIRATIONS ON ROOM AIR. CPOC. 2139 PT BEDTIME MEDS GIVEN. PT TEACHING ON NPO AFTER MIDNIGHT FOR 2ND HEART CATH IN AM. APPLIED GAUZE DRESSING WITH TEGADERM TO RIGHT WRIST INCISION SITE AND REPLACED TR BAND LOOSELY WITH TEACHING ON NOT APPLYING PRESSURE TO WRIST. PT VERBALIZED UNDERSTANDING. PROVIDED SANDWICH TRAY AT PT REQUEST SINCE HE WILL BE NPO AFTER MIDNIGHT. CPOC.
[2019-11-26 21:47] VITALS: BP 104/57
[2019-11-27 00:30] VITALS: BP 115/67
[2019-11-27 04:00] VITALS: BP 94/70
[2019-11-27 05:26] LABS: BASOPHILS 0.6 % (0-2); EOSINOPHILS 7.7 % (0-7); HEMATOCRIT 46.2 % (42.0-54.0); HEMOGLOBIN 15.4 g/dL (13.5-17.5); LYMPHOCYTES 34.8 % (15-50); MCH 31.2 pg (26.0-34.0); MCHC 33.3 g/dL (31.0-37.0); MCV 93.5 fL (80.0-100.0); MEAN PLATELET VOLUME 9.8 fL (7.4-10.4); MONOCYTES 9.9 % (2-11); PLATELET COUNT 252 10x3/uL (130-400); RBC 4.94 10x6/uL (4.20-6.10); RDW 13.8 % (11.5-14.5); WBC 4.8 10x3/uL (4.8-10.8)
[2019-11-27 06:33] LABS: CALCIUM 8.7 mg/dL (8.5-10.1); CARBON DIOXIDE 27.4 mmol/L (21.0-32.0); CREATININE - SERUM 1.1 mg/dL (0.6-1.3)
[2019-11-27 06:44] LABS: ANION GAP 10.9 mmol/L (8-16)
[2019-11-27 06:45] LABS: POTASSIUM - SERUM 4.3 mmol/L (3.5-5.1)
--- NOTE | 2019-11-27 07:49 | NUR ---
PRE-OPS GIVEN. TO ELECTRONIC TRANSACTION IMPLEMENTER BY BED.
--- NOTE | 2019-11-27 09:00 | NUR ---
BACK FROM SPECIAL EFFECTS ARTIST. VS WNL. RIGHT GROIN STABLE WITHOUT BLEEDING OR HEMATOMA NOTED. WILL MONITOR.
[2019-11-27 12:14] VITALS: BP 107/60
--- NOTE | 2019-11-27 12:46 | NUR ---
BED REST UP. GROIN STABLE.
[2019-11-27] MEDS ORDERED: PLAVIX75 MG PO (14:46)
[2019-11-27] MEDS ORDERED: ASPIRIN325 MG PO (14:47)
--- NOTE | 2019-11-27 15:24 | NUR ---
02 SAT 98% ON RA AMBULATING.
--- NOTE | 2019-11-27 16:13 | NUR ---
IV AND TELEMETRY DCD. DC PLANS GIVEN. UNDERSTANDING VOICED. ESCORTED TO CAR BY W/C.
--- NOTE | 2019-11-29 14:52 | EC ---
PATIENT:NUHA HUMPHREYS DATE OF SERVICE: 11/26/19 SEX: M MEDICAL RECORD: [id number] DATE OF : 65 LOCATION:D.M2 D.211 AGE OF PATIENT: 54 ADMISSION DATE: 11/26/19 REFERRING PHYSICIAN: INTERPRETING PHYSICIAN: GURINDER TINAJERO MD ECHOCARDIOGRAM REPORT ECHO CHARGES 4 ECHO COMPLETE Date: 11/26/19 CLINICAL DIAGNOSIS: CHF ECHOCARDIOGRAPHIC MEASUREMENTS (adult normal given) AC root (d.<3.7cm) 3.2 cm LV Septum d (<1.2 cm> 0.9 cm Valve Excursion 1.9 cm LV Septum (systole) 1.2 cm Left Atria (s.<4.0cm> 3.5 cm LVPW d(<1.2cm) 0.9 cm RV (d.<2.3cm) 2.6 cm LVPW (sytole) 1.0 cm LV diastole(<5.6CM) 6.3 cm MV E-F(>70mm/sec) cm LV systole 5.2 cm LVOT Diameter 2.0 cm MV exc.(>10mm) cm Est.ejection fraction (50-75%) % DOPPLER: LVIT cm/sec A 72 cm/sec E 45 cm/sec LA cm/sec RVSP 27.6 mmHg LVOT 75 cm/sec AOP1/2T m/s Asc. Ao 91 cm/sec RVOT 50 cm/sec RA cm/sec PA 73 cm/sec AV Gradient Peak 3.3 mmHg AV Mean 2.2 mmHg AV Area 2.2 cm MV Gradient Peak 3.4 mmHg MV Mean 0.9 mmHg MV Area cm COMMENTS: Tooth Cutter Spur: Leilani MCPHERSON Camera Repair Technician: 3 Dr. Ward TAPE# PACS Pericardial Effusion N DATE OF SERVICE: Adequate 2D, color flow imaging, spectral Doppler, and M-Mode. No LVH. LV internal dimensions are dilated. LV appears to be mildly globally hypo with EF lower limits of normal, mildly reduced. Estimated EF 45% to 50%. Aortic valve is sclerosed without stenosis by Doppler interrogation. Left atrium normal at 3.5 cm. Mitral valve shows no prolapse. Trace MR. Right-sided chambers are grossly normal. Mild TR. ECHOCARDIOGRAM REPORT [id number] NUHA HUMPHREYS TRANSINT:[id number] Voice Confirmation ID: [id number] DOCUMENT ID: [id number] GURINDER TINAJERO MD at 1452 CC: [id number] DICTATION DATE: 11/27/19 1229 RN NAVIGATOR: 11/27/19 1303 DIS IN 11/27/19 [place] [id number] [place] [id number]
== END 2019-11-27 16:17 | disposition home or self-care (01) | DRG 247 ==
LOC: D.ER 13:42 → D.M2 15:05 → OBSVTIME 15:05 → D.M2 15:05
PROVIDERS: Family Medicine; Internal Medicine Cardiovascular Disease; ADMIT Family Medicine; ATTEND Family Medicine
PROC: B2121ZZ Fluoroscopy of Single Coronary Artery Bypass Graft using Low Osmolar Contrast (ICD-10-PCS; 2019-11-26)
PROC: B2151ZZ Fluoroscopy of Left Heart using Low Osmolar Contrast (ICD-10-PCS; 2019-11-26)
PROC: 4A023N7 Measurement of Cardiac Sampling and Pressure, Left Heart, Percutaneous Approach (ICD-10-PCS; 2019-11-26)
PROC: B2111ZZ Fluoroscopy of Multiple Coronary Arteries using Low Osmolar Contrast (ICD-10-PCS; principal; 2019-11-26 13:44)
PROC: 027034Z Dilation of Coronary Artery, One Artery with Drug-eluting Intraluminal Device, Percutaneous Approach (ICD-10-PCS; 2019-11-27)
DX: I25.110 Atherosclerotic heart disease of native coronary artery with unstable angina pectoris (principal); I50.20 Unspecified systolic (congestive) heart failure; I11.0 Hypertensive heart disease with heart failure; I25.5 Ischemic cardiomyopathy